=== PATIENT | female | born 1975 | race Caucasian/White ===

== ENCOUNTER 2018-12-07 11:46 | Emergency (ER) | payer BC ==
[2018-12-07] MEDS ORDERED: NA CHLORIDE 0.9% 1,000 ML ONE (12:13)
[2018-12-07 12:58] LABS: Absolute Lymphocytes (CBC) 1.5 K/uL (0.7-4.9); Basophils % 0.8 % (0-1.3); Hematocrit 42.1 % (36.0-45.0); Lymphocytes % 16.1 % (15.3-44.8); MPV 8.6 fL (7.6-11.3)
[2018-12-07 13:06] LABS: Protime INR 1.04
[2018-12-07 13:17] LABS: Urine Blood TRACE (NEG); Urine Glucose NEGATIVE (NEG); Urine Protein 1+ (NEG)
[2018-12-07 13:26] LABS: ALT/SGPT 20 U/L (12-78); AST/SGOT 12 U/L (15-37); Albumin 3.4 g/dL (3.4-5.0); Alkaline Phosphatase 69 U/L (45-117); BUN Blood Urea Nitrogen 18 mg/dL (7-18); Bicarbonate 27 mmol/L (21-32); Bilirubin Direct < 0.1 mg/dL (0-0.2); Bilirubin Total 0.3 mg/dL (0.2-1.0); Glucose Level 94 mg/dL (74-106); NT PRO-BNP 49 pg/mL (<125); Potassium 3.9 mmol/L (3.5-5.1); Protein, Total 7.5 g/dL (6.4-8.2); Sodium Level 142 mmol/L (136-145); Troponin (Emerg Dept Use Only) < 0.02 ng/mL (0.0-0.045)
--- NOTE | 2018-12-07 16:27 | EDPHYS ---
Physician Documentation [facility] Name: Tamika Villalobos Age: 43 yrs Sex: Female : 1975 Arrival Date: 12/07/2018 Time: 11:57 Bed 4 Private MD: ED Physician Moshe Poon HPI: 12/07 12:24 This 43 yrs old Female presents to ER via EMS with complaints of Syncope. jmm 12:24 The patient has experienced syncope, became unresponsive, collapsed, lost m consciousness. Onset: The symptoms/episode began/occurred acutely, just prior to arrival. Duration: This was a single episode, that lasted 1 minute(s). Associated injury: The patient did not suffer any apparent associated injury. Associated signs and symptoms: Pertinent positives: shortness of breath. This is a 43 year old female with a history of depression that presents to the ED after a syncopal episode which occurred just prior to arrival. Patient was giving blood. Patient states having issues with fluctuating blood pressure. Patient states over the previous week have an episode of chest pain with unilateral weakness. Patient was seen in the ED in [place] and discharged. . DEMAND PLANNER: 16:53 LMP N/A - Hysterectomy jl7 Historical: - Allergies: 12:01 PENICILLINS; jl7 - Home Meds: 12:01 None [Active]; jl7 - PMHx: 12:01 Depression; jl7 - PSHx: 12:01 None; jl7 - Immunization history:: Adult Immunizations unknown. - Social history:: Smoking status: Patient/guardian denies using tobacco. - Ebola Screening: : No symptoms or risks identified at this time. ROS: 12:24 Constitutional: Negative for fever, chills, and weight loss, Cardiovascular: Negative jmm for chest pain, palpitations, and edema. 12:24 MS/Extremity: Negative for injury and deformity, Skin: Negative for injury, rash, and discoloration. 12:24 Respiratory: Positive for shortness of breath. 12:24 Neuro: Positive for syncope, Negative for weakness. 12:24 All other systems are negative. Exam: 12:24 Constitutional: This is a well developed, well nourished patient who is awake, alert, jmm and in no acute distress. Head/Face: atraumatic. Eyes: EOMI, no conjunctival erythema appreciated ENT: Moist Mucus Membranes Neck: Trachea midline, Supple Chest/axilla: Normal chest wall appearance and motion. 12:24 Abdomen/GI: Non distended, soft Back: Normal ROM Skin: General appearance color normal MS/ Extremity: Moves all extremities, no obvious deformities appreciated, no edema noted to the lower extremities 12:24 Cardiovascular: Rate: normal, Rhythm: regular, Pulses: no pulse deficits are appreciated. 12:24 Neuro: Orientation: is normal, Mentation: is normal, Memory: is normal. 12:24 Psych: Behavior/mood is pleasant, cooperative. Vital Signs: 12:01 BP 106 / 78; Pulse 69; Resp 15 S; Pulse Ox 100% on R/A; jl7 13:30 BP 127 / 79; Pulse 59; Resp 16 S; Pulse Ox 100% on R/A; jl7 14:24 BP 135 / 80; Pulse 74; Resp 20 S; Pulse Ox 100% on R/A; jl7 16:03 BP 116 / 83; Pulse 74; Resp 14 S; Pulse Ox 100% on R/A; jl7 MDM: 12:03 Patient medically screened. [facility] 16:24 Data reviewed: vital signs, nurses notes. Counseling: I had a detailed discussion with marjorie the patient and/or guardian regarding: the historical points, exam findings, and any diagnostic results supporting the discharge/admit diagnosis, lab results, radiology results, the need for outpatient follow up, to return to the emergency department if symptoms worsen or persist or if there are any questions or concerns that arise at home. ED course: Patient is alert and non toxic in appearance. H/H normal. EKG normal. Imaging studies negative. Patient advised to follow up with cardiology and otherwise given strict return precautions. Patient understood and agrees with the plan of care. . 12/07 12:00 Order name: Basic Metabolic Panel; Complete Time: 13:31 [facility] 12/07 12:00 Order name: CBC with Diff; Complete Time: 13:16 [facility] 12/07 12:00 Order name: LFT's; Complete Time: 13:31 [facility] 12/07 12:00 Order name: Magnesium; Complete Time: 13:31 [facility] 12/07 12:00 Order name: NT PRO-BNP; Complete Time: 13:31 [facility] 12/07 12:00 Order name: PT-INR; Complete Time: 13:16 [facility] 12/07 12:00 Order name: Troponin (emerg Dept Use Only); Complete Time: 13:31 [facility] 12/07 12:00 Order name: XRAY Chest (1 view) [facility] 12/07 12:14 Order name: D-Dimer; Complete Time: 13:33 [facility] 12/07 13:16 Order name: Urine Dipstick--Ancillary (enter results); Complete Time: 13:31 [facility] 12/07 13:16 Order name: Urine --Ancillary (enter results); Complete Time: 13:31 [facility] 12/07 13:33 Order name: CT Head Brain wo Cont [facility] 12/07 13:33 Order name: CT Chest For PE Angio [facility] 12/07 15:21 Order name: ESR; Complete Time: 17:00 [facility] 12/07 12:00 Order name: EKG; Complete Time: 12:01 [facility] 12/07 12:00 Order name: Cardiac monitoring; Complete Time: 14:23 [facility] 12/07 12:00 Order name: EKG - Nurse/Tech; Complete Time: 14:22 [facility] 12/07 12:00 Order name: IV Saline Lock; Complete Time: 14:22 [facility] 12/07 12:00 Order name: Labs collected and sent; Complete Time: 14:22 [facility] 12/07 12:00 Order name: O2 Per Protocol; Complete Time: 14:22 [facility] 12/07 12:00 Order name: O2 Sat Monitoring; Complete Time: 14:22 [facility] 12/07 12:01 Order name: Urine Dipstick-Ancillary (obtain specimen); Complete Time: 14:22 [facility] Administered Medications: 12:45 Drug: NS 0.9% 1000 ml Route: IV; Rate: 1 bolus; Site: left antecubital; jl7 13:45 Follow up: Response: No adverse reaction; IV Status: Completed infusion; IV Intake: jl7 1000ml Disposition: 12/07/18 16:26 Discharged to Home. Impression: Syncope and collapse. - Condition is Stable. - Discharge Instructions: Syncope. - Medication Reconciliation Form, Thank You Letter, Antibiotic Education, Prescription Opioid Use form. - Follow up: Private Physician; When: 2 - 3 days; Reason: Recheck today's complaints, Continuance of care, Re-evaluation by your physician. Addendum: 12/09/2018 07:53 Co-signature as Attending Physician, Moshe Poon MD I agree with the assessment and c zaragoza plan of care. Signatures: Dispatcher [employer] EDMoshe Jurado MD MD cha Mickail, Joel, PA PA jmm Leal, Jahala, RN RN jl7 Corrections: (The following items were deleted from the chart) 12/07 17:02 16:26 12/07/2018 16:26 Discharged to Home. Impression: Syncope and collapse. Condition jl7 is Stable. Forms are Medication Reconciliation Form, Thank You Letter, Antibiotic Education, Prescription Opioid Use. Follow up: Private Physician; When: 2 - 3 days; Reason: Recheck today's complaints, Continuance of care, Re-evaluation by your physician. marjorie
--- NOTE | 2018-12-07 16:27 | ER ---
Nurse's Notes [facility] Name: Tamika Villalobos Age: 43 yrs Sex: Female : 1975 Arrival Date: 12/07/2018 Time: 11:57 Bed 4 Private MD: Diagnosis: Syncope and collapse Presentation: 12/07 11:58 Presenting complaint: EMS states: Pt had a syncopal episode while having labs done at [facility], out for 30 secs, phlebotomists reported not being able to find a pulse. Pts reports "She has a problem with needles.". Transition of care: [facility]. Onset of symptoms was December 07, 2018. Risk Assessment: Do you want to hurt yourself or someone else? Patient reports no desire to harm self or others. Initial Sepsis Screen: Does the patient meet any 2 criteria? No. Patient's initial sepsis screen is negative. Does the patient have a suspected source of infection? No. Patient's initial sepsis screen is negative. Care prior to arrival: Glucose check: 109. 11:58 Method Of Arrival: EMS: [facility] 11:58 Acuity: NIK 2 [facility] Triage Assessment: 12:00 General: Appears in no apparent distress. uncomfortable, Behavior is calm, cooperative, jl7 appropriate for age, drowsy. Pain: Denies pain. EENT: No signs and/or symptoms were reported regarding the EENT system. Neuro: Level of Consciousness is awake, alert, obeys commands, Oriented to person, place, time, situation, Reports dizziness just prior to syncope and "I just feel off.". Cardiovascular: Patient's skin is warm and dry. Respiratory: Airway is patent Respiratory effort is even, unlabored, Respiratory pattern is regular, symmetrical. GI: Abdomen is flat, non-distended, Reports nausea, Patient currently denies diarrhea, vomiting. : No signs and/or symptoms were reported regarding the genitourinary system. Derm: Skin is pink, warm \\T\\ dry. Musculoskeletal: No signs and/or symptoms reported regarding the musculoskeletal system. CLINICAL CODER: 16:53 LMP N/A - Hysterectomy jl7 Historical: - Allergies: 12:01 PENICILLINS; jl7 - Home Meds: 12:01 None [Active]; jl7 - PMHx: 12:01 Depression; jl7 - PSHx: 12:01 None; jl7 - Immunization history:: Adult Immunizations unknown. - Social history:: Smoking status: Patient/guardian denies using tobacco. - Ebola Screening: : No symptoms or risks identified at this time. Screenin:30 Abuse screen: Denies threats or abuse. Denies injuries from another. Nutritional jl7 screening: No deficits noted. Tuberculosis screening: No symptoms or risk factors identified. Fall Risk IV access (20 points). Total Arzate Fall Scale indicates No Risk (0-24 pts). Assessment: 12:00 General: see triage assessment. jl7 13:00 Reassessment: Patient appears in no apparent distress at this time. No changes from jl7 previously documented assessment. Patient and/or family updated on plan of care and expected duration. Pain level reassessed. Patient is alert, oriented x 3, equal unlabored respirations, skin warm/dry/pink. 14:00 Reassessment: Patient appears in no apparent distress at this time. Patient and/or 7 family updated on plan of care and expected duration. Pain level reassessed. Patient is alert, oriented x 3, equal unlabored respirations, skin warm/dry/pink. 15:00 Reassessment: Patient appears in no apparent distress at this time. Patient and/or 7 family updated on plan of care and expected duration. Pain level reassessed. Patient is alert, oriented x 3, equal unlabored respirations, skin warm/dry/pink. Patient states feeling better. Patient states symptoms have improved. 16:00 Reassessment: Patient appears in no apparent distress at this time. No changes from jl7 previously documented assessment. Patient and/or family updated on plan of care and expected duration. Pain level reassessed. Patient is alert, oriented x 3, equal unlabored respirations, skin warm/dry/pink. Vital Signs: 12:01 BP 106 / 78; Pulse 69; Resp 15 S; Pulse Ox 100% on R/A; jl7 13:30 BP 127 / 79; Pulse 59; Resp 16 S; Pulse Ox 100% on R/A; jl7 14:24 BP 135 / 80; Pulse 74; Resp 20 S; Pulse Ox 100% on R/A; jl7 16:03 BP 116 / 83; Pulse 74; Resp 14 S; Pulse Ox 100% on R/A; jl7 ED Course: 11:57 Patient arrived in ED. jl7 12:00 Earl Cotter PA is PHCP. [facility] 12:00 Moshe Poon MD is Attending Physician. [facility] 12:00 Triage completed. jl7 12:00 Patient has correct armband on for positive identification. Placed in gown. Bed in low jl7 position. Call light in reach. Side rails up X2. classroom monitor on. Pulse ox on. NIBP on. Warm blanket given. 12:01 Arm band placed on right wrist. jl7 12:02 Shawanda Cruz, RN is Primary Nurse. jl7 12:37 EKG done, by equipment maint tech. reviewed by Earl BERNABE. at1 12:45 Initial lab(s) drawn, by nh, sent to lab. Inserted saline lock: 22 gauge in left jl7 antecubital area, using aseptic technique. Blood collected. 14:14 XRAY Chest (1 view) In Process Unspecified. EDMS 14:24 CT Head Brain wo Cont In Process Unspecified. EDMS 14:24 CT Chest For PE Angio In Process Unspecified. EDMS 16:52 No provider procedures requiring assistance completed. IV discontinued, intact, jl7 bleeding controlled, No redness/swelling at site. Pressure dressing applied. Administered Medications: 12:45 Drug: NS 0.9% 1000 ml Route: IV; Rate: 1 bolus; Site: left antecubital; jl7 13:45 Follow up: Response: No adverse reaction; IV Status: Completed infusion; IV Intake: jl7 1000ml Intake: 13:45 IV: 1000ml; Total: 1000ml. [facility] Outcome: 16:26 Discharge ordered by . [facility] 16:52 Discharged to home ambulatory. jl7 16:52 Condition: stable 16:52 Discharge instructions given to patient, family, Instructed on discharge instructions, follow up and referral plans. Demonstrated understanding of instructions, follow-up care. 17:02 Patient left the ED. [facility] Signatures: Dispatcher [employer] EDMS Earl Cotter PA PA jmm Gonzales, Amanda, video and sound recorder EKG Tat1 Shawanda Cruz, RN RN [facility]
--- NOTE | 2018-12-07 20:03 | RAD REPORT ---
EXAM DESCRIPTION: CT HEAD W/O CONTRAST CLINICAL HISTORY: Syncope COMPARISON: None available. TECHNIQUE: Axial 5 mm thick images of the head were obtained without contrast. Sagittal and coronal reconstruction images were generated and reviewed. This exam was performed according to our departmental dose-optimization program, which includes automated exposure control, adjustment of the mA and/or kV according to patient size and/or use of iterative reconstruction technique. FINDINGS: No intracranial hemorrhage is present. No mass, edema or shift of midline structures. No acute intracranial finding is seen. No volume loss. Ventricles are normal. Right side mastoid air cells are clear. Left mastoid opacification. No acute paranasal sinus finding. There is a large polyp or retention cyst in the right maxillary sinus. IMPRESSION: 1. No mass, hemorrhage or acute intracranial finding identifiable. 2. Left mastoid opacification. No acute paranasal sinus finding.
--- NOTE | 2018-12-07 20:12 | RAD REPORT ---
EXAM DESCRIPTION: CT CHEST PE ANGIO STUDY CLINICAL HISTORY: Shortness of breath, elevated D Dimer COMPARISON: Portable chest December 07, 2018 TECHNIQUE: During dynamic enhancement using 150 milliliters non-ionic IV contrast, axial 2 mm thick images of the chest were obtained. Multiplanar reconstruction images were generated and reviewed. This exam was performed according to our departmental dose-optimization program, which includes automated exposure control, adjustment of the mA and/or kV according to patient size and/or use of iterative reconstruction technique. FINDINGS: No pulmonary emboli identified. No pulmonary artery enlargement. No acute aortic finding. No pericardia thickening or effusion. No mediastinal or hilar mass or lymphadenopathy identifiable. No pneumothorax or pleural effusion. No acute lung parenchymal process identifiable. No chest wall mass or axillary lymphadenopathy. No acute bone finding. IMPRESSION: 1. No pulmonary emboli. 2. No acute CT chest finding.
[2018-12-07 21:05] VITALS: O2SAT 100
[2018-12-07 21:10] VITALS: BP 116/83
--- NOTE | 2018-12-08 04:39 | EKG ---
Test Date: 2018-12-07 Test Time: 12:15:42 Assembly Machine Feeder: JANNETTE MEASUREMENT RESULTS: Intervals: Rate: 64 MD: 164 QRSD: 88 QT: 410 QTc: 422 Chassell: P: 30 MD: 164 QRS: 28 T: 49 INTERPRETIVE STATEMENTS: Normal sinus rhythm Normal ECG No previous ECG available for comparison Electronically Signed On 12-08-18 04:39:27 CDT by Anthony Villeda
--- NOTE | 2018-12-08 11:50 | RAD REPORT ---
EXAM DESCRIPTION: Ashwini Single View12/07/2018 7:17 pm CLINICAL HISTORY: Syncope COMPARISON: none FINDINGS: The lungs appear clear of acute infiltrate. The heart is normal size IMPRESSION: No acute abnormalities displayed
== END 2018-12-07 17:02 | disposition home or self-care (01) ==
LOC: ER 11:46
DX: R55 Syncope and collapse (principal); F32.9 Major depressive disorder, single episode, unspecified; Z88.0 Allergy status to penicillin
CPT/HCPCS: 93005; 85025; 80048; 36415; 83735; 81025; 85610; 85379; 80076; 85652; 81003; 84484; 83880; 70450; 71275; 71045; 96360; 99285; Q9967; J7030

== ENCOUNTER 2020-08-05 09:01 | Emergency (ER) | payer BC ==
--- OUTSIDE RECORDS SUMMARY | 2020-08-05 09:04 | XMS REPORT | Continuity of Care Document ---
:1975 Author Organization [facility] t Address [address] [place] [address] [address] [place] [address] Care Team Providers Name Role Phone Fareed Holden MD Primary Care Physician Varsha Hurst Attending Clinician Fareed Max MD. Attending Clinician ARIANA Attending Clinician Unavailable Payers Payer Name Policy Type Policy Effective Date Expiration Date Sour ce Number BCBSBCBS CHOICE [id number] 2019 [place] PPO/FEDERAL 00:00:00 [employer] EMPL [id number] 2019-Prese ntPPO Problems This patient has no known problems. Allergies, Adverse Reactions, Alerts Allergy Allergy Status Severity Reaction(s) Onset Inactive Treating Comm ents Source Name Type Date Date Clinician Hydrocod Propensi Active Shortness Of 2019-0 [place] one-Acet ty to Breath 1-29 Methodi aminophe adverse 00:00: st n reaction 00 s to drug Penicill Propensi Active Hives, 2016-03 [place] n ins ty to Itching, 0-26 Methodi adverse Rash 00:00: st reaction 00 s to drug Family History Family Member Diagnosis Comments Start Date Stop Date Source Natural mother Heart attack [place] [employer] Natural mother Heart disease [place] [facility] Natural mother Stroke [facility] [place] [facility] thodist Natural father Diabetes [facility] [place] [facility]odist Social History Social Habit Start Date Stop Date Quantity Comments Source Tobacco use and 2019-05-20 2019-05-20 Never used [facility] ethodist exposure 00:00:00 00:00:00 Alcohol intake 2019-05-20 2019-05-20 Current [facility] [place] [facility] thodist 00:00:00 00:00:00 non-drinker of alcohol (finding) Sex Ass[birth year] F Suhas Lopez ethodist 00:00:00 00:00:00 Smoking Status Start Date Stop Date Source Never smoker Suhas Pichardois t Medications Ordered Filled Start Stop Current Ordering Indication Dosage Frequency Signature Comments Components Source Medication Medication Date Date Medication? Clinician (SIG) Name Name meloxicam 2020- No 15mg QD Take 1 [place] on (MOBIC) 15 08-2118 tablet (15 Me thodi mg tablet 00:00: 23:59 mg total) st 00 :00 by mouth daily for 30 days. Start after completing steroid pack. Take with food. methylPREDN 2019- 2020- No Use as Abran nehal ISolone 08-21 06-24 directed Methodi (MEDROL 00:00: 23:[address] DOSEPAK) 4 00 :00 instructio mg tablet ns VIIBRYD 20 Yes 20mg Take 20 mg [place] mg tablet 1-24 by mouth. Metho di 00:00: st 00 Procedures Procedure Date / Time Performed Performing Clinician [facility] e MRI LUMBAR SPINE WO 2019-08-26 17:34:18 Colin Sanchez CONTRAST XR LUMBAR SPINE COMPLETE 2019-08-22 09:07:08 Colin Sanchez 4+ VW Plan of Care Planned Activity Planned Date Details Comments Source Future Scheduled 2020-10-04 INFLUENZA VACCINE Lamin n Sabianist Test 00:00:00 [code = INFLUENZA VACCINE] Future Scheduled 1997 Screening for Dai Me thodist Test 00:00:00 malignant neoplasm of cervix (procedure) [code = 165040373] Future Scheduled 1994 Hepatitis C [place] Met hodist Test 00:00:00 screening (procedure) [code = 594154968] Future Scheduled 1988 COVID-19 VACCINE (1) Abran Garcia Test 00:00:00 [code = COVID-19 VACCINE (1)] Encounters Start End Encounter Admission Attending Care Care Encounter Source Date/Time Date/Time Type Type Clinicians Facility Department ID 2019-08-27 2019-08-27 Outpatient AURELIO Alexx [facility] [id number] [place] 00:00:00 00:00:[address] 2019-08-26 2019-08-26 Outpatient PETER, [facility] [id number] [place] 00:00:00 00:00:00 SAMANTHA [address] 2019-08-22 2019-08-22 Outpatient AURELIO, [facility] [id number] [place] 00:00:00 00:00:00 COLIN [address] 2019-08-22 2019-08-22 Outpatient AURELIO, [facility] [id number] [place] 00:00:00 00:00:00 COLIN [address] 2019-05-20 2019-05-20 Outpatient ARIANA, [facility] [id number] [place] 00:00:00 00:00:00 GORDO [address] Results Test Description Test Time Test Comments Results Result Sourc e Comments MRI Lumbar Spine 2019-08-06 Jaz Reed on Wo Contrast 2 Radiology Results Method ist 17:42:14 08/26/2019 5:45 PM CDT EXAMINATION: MRI LUMBAR SPINE WO CONTRASTCLINICAL HISTORY: M43.16 Spondylolisthesis lumbar region, M47.26 Other spondylosis with radiculopathy lumbar region, lumbar radiculopathy spondylolisthesis at [id number]: NoneTECHNIQUE: Multiplanar multisequence noncontrast enhanced examination was performed of the Lumbar spine.FINDINGS:Numberi ng assumes that the last visualized functional disc to be L5-S1.There is normal lordosis. Vertebral body heights are maintained without acute fracture. No focal significant marrow signal abnormality is appreciated. Soft tissues shows no mass, adenopathy or aneurysm. The partially visualized spinal cord and the conus are unremarkable. Axial images through the disc spaces demonstrate the following:T12-L1: No significant posterior disc disease, spinal canal, lateral recess or neural foraminal stenosis.L1-L2: No significant posterior disc disease, spinal canal, lateral recess or neural foraminal stenosis.L2-L3: No significant posterior disc disease, spinal canal, lateral recess or neural foraminal stenosis.L3-L4: No significant posterior disc disease, spinal canal, lateral recess or neural foraminal stenosis..L4-L5: Disc desiccation with mild disc bulge and facet hypertrophy minimally narrowing the lateral recesses. The central thecal sac remains widely patent. Facet spurring and disc osteophyte changes results in mild right and moderate left foraminal narrowing where there is a focal left foraminal and extra foraminal protrusion moderately abutting the exiting left L4 nerve root. Correlate for a left L4 radiculopathy to determine significance.L5-S1: There is disc desiccation and disc bulge with a broad-based posterior protrusion measuring 3 mm in AP dimension. There is facet spurring with minimal right and mild left lateral recess narrowing. The central thecal sac is patent at 9 mm. Facet spurring and disc osteophyte changes results in mild right and mild to moderate left foraminal stenosisThe partially visualized upper sacrum is unremarkable.IMPRESSIO N: There is spondylosis most prominent at L4-L5 with disc bulge and facet disease resulting in mild narrowing of the lateral recesses. There is a superimposed left foraminal and foraminal disc protrusion on the left directly abutting the exiting left L4 nerve root. There is at least moderate foraminal stenosis. Correlate for a left L4 radiculopathy.[facility]UA [id number]
[2020-08-05 09:43] LABS: Urine Blood Negative (Negative); Urine Glucose Negative (Negative); Urine Protein Negative (Negative); Urine Specific Gravity 1.025 (1.005-1.030); Urine pH 7.5 (5.0-7.0)
--- NOTE | 2020-08-05 09:59 | RAD REPORT ---
EXAM DESCRIPTION: CT - Head Brain Wo Cont - 08/05/2020 9:52 am CLINICAL HISTORY: DIZZINESS Headache, drowsiness COMPARISON: Head Brain Wo Cont dated 12/07/2018 TECHNIQUE: All CT scans are performed using dose optimization technique as appropriate and may inclu de automated exposure control or mA/KV adjustment according to patient size. FINDINGS: No intracranial hemorrhage, hydrocephalus or extra-axial fluid collection.No areas of brai n edema or evidence of midline shift. 18 mm mucous retention cyst versus polyp right maxillary antrum. The paranasal sinuses and mastoids a re otherwise clear. The calvarium is intact. IMPRESSION: No acute intracranial abnormality.
[2020-08-05] MEDS ORDERED: ASPIRIN 81 MG CHEWABLE TABLET ONE ×2 (10:10→10:11)
[2020-08-05 10:28] LABS: Absolute Lymphocytes (CBC) 2.3 K/uL (0.7-4.9); Basophils % 1.4 % (0-1.3); Hematocrit 40.5 % (36.0-45.0); Lymphocytes % 25.9 % (15.3-44.8); MPV 8.8 fL (7.6-11.3); Protime INR 1.06; RBC Red Blood Cell Count 4.51 M/uL (3.86-4.86)
[2020-08-05 10:37] LABS: Urine Specific Gravity/Preg 1.025 (1.005-1.030)
--- NOTE | 2020-08-05 10:38 | RAD REPORT ---
EXAM DESCRIPTION: RAD - Chest Single View - 08/05/2020 10:29 am CLINICAL HISTORY: CHEST PAIN Chest pain. COMPARISON: Chest Single View dated 12/07/2018 FINDINGS: Portable technique limits examination quality. The lungs are grossly clear. The heart is normal in size. No displaced fractures. IMPRESSION: No acute intrathoracic process suspected.
[2020-08-05 10:46] LABS: ALT/SGPT 25 U/L (12-78); AST/SGOT 18 U/L (15-37); Albumin 3.1 g/dL (3.4-5.0); Alkaline Phosphatase 76 U/L (45-117); BUN Blood Urea Nitrogen 10 mg/dL (7-18); Bicarbonate 26 mmol/L (21-32); Bilirubin Direct < 0.1 mg/dL (0-0.2); Bilirubin Total 0.3 mg/dL (0.2-1.0); Creatine Phosphokinase 71 U/L (26-192); Glucose Level 86 mg/dL (74-106); Magnesium 2.1 mg/dL (1.8-2.4); NT PRO-BNP 202 pg/mL (<125); Potassium 4.1 mmol/L (3.5-5.1); Protein, Total 7.3 g/dL (6.4-8.2); Sodium Level 142 mmol/L (136-145); Troponin (Emerg Dept Use Only) < 0.02 ng/mL (0.0-0.045)
[2020-08-05] MEDS ORDERED: NA CHLORIDE 0.9% 1,000 ML ONE (11:32)
--- NOTE | 2020-08-05 14:37 | EDPHYS ---
Physician Documentation [facility] Name: Tamika Villalobos Age: 45 yrs Sex: Female : 1975 Arrival Date: 08/05/2020 Time: 09:05 Bed 19 Private MD: ED Physician Natanael Siegel HPI: 08/05 11:03 This 45 yrs old Female presents to ER via Ambulatory with complaints of Arm kb Numbness, Dizziness. 11:04 The patient or guardian reports chest pain that is located primarily in the anterior kb chest wall, left. Onset: this morning. The pain does not radiate. Associated signs and symptoms: Pertinent positives: dizziness, nausea, near-syncope, shortness of breath, vomiting. The chest pain is described as a pressure. Duration: The patient or guardian reports a single episode, that is still ongoing, and unchanged. Modifying factors: The symptoms are alleviated by nothing. the symptoms are aggravated by nothing. Severity of pain: At its worst the pain was moderate in the emergency department the pain is unchanged. The patient has not experienced similar symptoms in the past. The patient has not recently seen a physician. Pt reports nausea and vomiting yesterday. States she didn't feel well this morning, but was going to go to work. On the way there she became dizzy with blurred vision in left eye. Reports numbness to left arm, chest pain and shortness of breath. States she pulled over because she thought she was going to pass out. States she is supposed to be going to a [employer] because she has syncopal episodes at times for an unknown reason. States her mother and grandmother have cardiac history, but she hasn't been diagnosed with anything. . Historical: - Allergies: 09:24 PENICILLINS; ph - PMHx: 09:24 Depression; ph - PSHx: 09:24 Hysterectomy; ph ROS: 11:00 Constitutional: Negative for fever, chills, and weight loss. kb 11:00 Cardiovascular: Positive for chest pain, Negative for edema, orthopnea, palpitations, paroxysmal nocturnal dyspnea. 11:00 Respiratory: Positive for shortness of breath, Negative for cough, dyspnea on exertion, hemoptysis, orthopnea, pleurisy, sputum production, wheezing. 11:00 Abdomen/GI: Positive for nausea and vomiting, Negative for abdominal pain. 11:00 Neuro: Positive for dizziness, numbness, of the left arm. 11:00 All other systems are negative. Exam: 09:34 ECG was reviewed by the Attending Physician. kb 11:00 Constitutional: This is a well developed, well nourished patient who is awake, alert, kb and in no acute distress. Eyes: Pupils equal round and reactive to light, extra-ocular motions intact. Lids and lashes normal. Conjunctiva and sclera are non-icteric and not injected. Cornea within normal limits. Periorbital areas with no swelling, redness, or edema. Cardiovascular: Regular rate and rhythm with a normal S1 and S2. No gallops, murmurs, or rubs. No pulse deficits. Respiratory: Respirations even and unlabored. No increased work of breathing, no retractions or nasal flaring. Abdomen/GI: Soft, non-tender. No distention Skin: Warm, dry with normal turgor. Normal color. MS/ Extremity: Pulses equal, no cyanosis. Neurovascular intact. Full, normal range of motion. Neuro: Awake and alert, GCS 15, oriented to person, place, time, and situation. Moves all extremities. Normal gait. Psych: Awake, alert, with orientation to person, place and time. Behavior, mood, and affect are within normal limits. 11:00 Neuro: Cerebellar function: is grossly normal, Motor: strength is 5/5 in all extremities. 13:48 ECG was reviewed by the Attending Physician. Vital Signs: 09:20 BP 162 / 104; Pulse 82; Resp 22; Temp 97.0; Pulse Ox 100% on R/A; Weight 86.18 kg; ph Height 5 ft. 5 in. (165.10 cm); 10:41 BP 137 / 89; Pulse 66; Resp 17; Pulse Ox 95% on R/A; tw2 10:52 BP 127 / 74 Supine; Pulse 73; Resp 16; Pulse Ox 99% on R/A; tw2 10:52 BP 122 / 71 Sitting; Pulse 76; Resp 17; tw2 10:52 BP 128 / 87 Standing; Pulse 84; Resp 17; Pulse Ox 100% ; tw2 12:03 BP 123 / 79; Pulse 66; Resp 17; Pulse Ox 98% on R/A; tw2 13:06 BP 134 / 88; Pulse 65; Resp 19; Pulse Ox 100% on R/A; tw2 14:25 BP 130 / 73; Pulse 67; Resp 17; Pulse Ox 99% on R/A; tw2 09:20 Body Mass Index 31.62 (86.18 kg, 165.10 cm) ph 10:52 "i do feel lightheaded now", provider notified. tw2 Visual Acuity: 10:32 Left Eye Visual acuity 20/40, ; Right Eye Visual acuity 20/30, ; Both Eyes Visual mh5 acuity 20/30; With Lenses; with contacts in MDM: 09:32 Patient medically screened. kb 11:03 Data reviewed: vital signs, nurses notes. Data interpreted: Pulse oximetry: on room air kb is 100 %. Interpretation: normal. 11:37 ED course: Symptoms have all resolved. Pt resting on stretcher in no distress. kb Discussed history, HPI and exam with ERP, recommends repeat trop and outpatient follow up. Pt in agreement with plan of care. 08/05 09:41 Order name: Basic Metabolic Panel; Complete Time: 10:47 kb 08/05 09:41 Order name: CBC with Diff; Complete Time: 10:31 kb 08/05 09:41 Order name: LFT's; Complete Time: 10:47 kb 08/05 09:41 Order name: Magnesium; Complete Time: 10:47 kb 08/05 09:41 Order name: NT PRO-BNP; Complete Time: 10:47 kb 08/05 09:41 Order name: PT-INR; Complete Time: 10:31 kb 08/05 09:41 Order name: Troponin (emerg Dept Use Only); Complete Time: 10:47 kb 08/05 09:41 Order name: XRAY Chest (1 view); Complete Time: 10:44 kb 08/05 09:41 Order name: CPK; Complete Time: 10:47 kb 08/05 09:41 Order name: CT Head Brain wo Cont; Complete Time: 10:00 kb 08/05 09:43 Order name: Urine --Ancillary (enter results); Complete Time: 10:44 bd 08/05 09:43 Order name: Urine Dipstick-Ancillary; Complete Time: 10:00 EDMS 08/05 12:34 Order name: Troponin (emerg Dept Use Only); Complete Time: 14:30 kb 08/05 09:33 Order name: Visual Acuity; Complete Time: 11:11 kb 06/02 09:38 Order name: Urine Dipstick-Ancillary (obtain specimen); Complete Time: 09:38 tw2 08/05 09:41 Order name: EKG; Complete Time: 09:42 kb 08/05 09:41 Order name: Cardiac monitoring; Complete Time: 11:11 kb 08/05 09:41 Order name: EKG - Nurse/Tech; Complete Time: 09:48 kb 08/05 09:41 Order name: IV Saline Lock; Complete Time: 10:47 kb 08/05 09:41 Order name: Labs collected and sent; Complete Time: 10:47 kb 08/05 09:41 Order name: O2 Per Protocol; Complete Time: 09:48 kb 08/05 09:41 Order name: O2 Sat Monitoring; Complete Time: 09:48 kb 08/05 10:07 Order name: Orthostatics; Complete Time: 10:53 kb 08/05 12:34 Order name: EKG; Complete Time: 12:34 kb 08/05 12:34 Order name: EKG - Nurse/Tech; Complete Time: 13:31 kb EC:34 Rate is 84 beats/min. Rhythm is regular. QRS [place] is Normal. OR interval is normal at kb 146 msec. QRS interval is normal at 82 msec. QT interval is normal at 366 msec. 13:48 Rate is 73 beats/min. Rhythm is regular. QRS [place] is Normal. OR interval is normal at kb 162 msec. QRS interval is normal at 92 msec. QT interval is normal at 408 msec. Administered Medications: 10:00 Drug: Aspirin Chewable Tablet 324 mg Route: PO; tw2 10:48 Follow up: Response: No adverse reaction tw2 11:14 Drug: NS 0.9% 1000 ml Route: IV; Rate: 1000 ml; Site: right antecubital; tw2 14:49 Follow up: Response: No adverse reaction; IV Status: Completed infusion; IV Intake: tw2 1000ml Disposition: 18:31 Co-signature as Attending Physician, Natanael Siegel MD I agree with the assessment and tw4 plan of care. Disposition: 08/05/20 14:36 Discharged to Home. Impression: Dizziness and giddiness, Chest pain, unspecified. - Condition is Stable. - Discharge Instructions: Nonspecific Chest Pain, [id number], Dizziness, [id number]. - Medication Reconciliation Form, Thank You Letter, Antibiotic Education, Prescription Opioid Use, Work release form, Family Work Release form. - Follow up: Emergency Department; When: As needed; Reason: Worsening of condition. Follow up: Private Physician; When: 2 - 3 days; Reason: Recheck today's complaints, Continuance of care, Re-evaluation by your physician. Signatures: Dispatcher [employer] EDAZ Claudine Kim, LEMUEL-C HADOOP ENGINEER-Belinda Licea, RN RN Eliza Waterman RN RN tw2 Natanael Siegel MD MD tw4 Corrections: (The following items were deleted from the chart) 14:50 14:36 08/05/2020 14:36 Discharged to Home. Impression: Dizziness and giddiness; Chest tw2 pain, unspecified. Condition is Stable. Forms are Medication Reconciliation Form, Thank You Letter, Antibiotic Education, Prescription Opioid Use. Follow up: Emergency Department; When: As needed; Reason: Worsening of condition. Follow up: Private Physician; When: 2 - 3 days; Reason: Recheck today's complaints, Continuance of care, Re-evaluation by your physician. kb
--- NOTE | 2020-08-05 14:37 | ER ---
Nurse's Notes [facility] Name: Tamika Villalobos Age: 45 yrs Sex: Female : 1975 Arrival Date: 08/05/2020 Time: 09:05 Bed 19 Private MD: Diagnosis: Dizziness and giddiness;Chest pain, unspecified Presentation: 08/05 09:20 Chief complaint: Patient states: Blurred vision in L eye, numbness in L arm and ph generalized weakness that began yesterday, intermittent L sided chest pain and dizziness that started today. States, " I think I'm dehydrated from being out in the sun all day Monday." Reports N/V last night. Coronavirus screen: Client denies travel out of the [place] in the last 14 days. Ebola Screen: No symptoms or risks identified at this time. Initial Sepsis Screen: Does the patient meet any 2 criteria? No. Patient's initial sepsis screen is negative. Does the patient have a suspected source of infection? No. Patient's initial sepsis screen is negative. Risk Assessment: Do you want to hurt yourself or someone else? Patient reports no desire to harm self or others. Onset of symptoms was August 05, 2020. 09:20 Method Of Arrival: Ambulatory ph 09:20 Acuity: NIK 3 ph Historical: - Allergies: 09:24 PENICILLINS; ph - PMHx: 09:24 Depression; ph - PSHx: 09:24 Hysterectomy; ph Screenin:08 Abuse screen: Denies threats or abuse. Nutritional screening: No deficits noted. tw2 Tuberculosis screening: No symptoms or risk factors identified. Fall Risk None identified. Assessment: 09:17 Reassessment: pt being triaged in exam room at this time. tw2 09:38 Reassessment: provider at bedside at this time. tw2 10:00 General: Appears in no apparent distress. obese, well groomed, Behavior is cooperative, tw2 anxious. Pain: Complains of pain in chest. Neuro: Level of Consciousness is awake, alert, obeys commands, Oriented to person, place, time, situation. Cardiovascular: Reports chest pain, shortness of breath. Cardiovascular: Reports. Respiratory: Airway is patent Respiratory effort is even, unlabored, Respiratory pattern is regular, symmetrical. GI: No signs and/or symptoms were reported involving the gastrointestinal system. : No signs and/or symptoms were reported regarding the genitourinary system. EENT: No signs and/or symptoms were reported regarding the EENT system. Derm: No signs and/or symptoms reported regarding the dermatologic system. Musculoskeletal: Range of motion: intact in all extremities. 10:41 Reassessment: Patient appears in no apparent distress at this time. No changes from tw2 previously documented assessment. Patient and/or family updated on plan of care and expected duration. Pain level reassessed. Patient is alert, oriented x 3, equal unlabored respirations, skin warm/dry/pink. 10:45 Reassessment: Patient appears in no apparent distress at this time. No changes from tw2 previously documented assessment. Patient and/or family updated on plan of care and expected duration. Pain level reassessed. Patient is alert, oriented x 3, equal unlabored respirations, skin warm/dry/pink. 12:03 Reassessment: Patient appears in no apparent distress at this time. No changes from tw2 previously documented assessment. Patient and/or family updated on plan of care and expected duration. Pain level reassessed. Patient is alert, oriented x 3, equal unlabored respirations, skin warm/dry/pink. 13:06 Reassessment: Patient appears in no apparent distress at this time. No changes from tw2 previously documented assessment. Patient and/or family updated on plan of care and expected duration. Pain level reassessed. Patient is alert, oriented x 3, equal unlabored respirations, skin warm/dry/pink. 14:26 Reassessment: Patient appears in no apparent distress at this time. No changes from tw2 previously documented assessment. Patient and/or family updated on plan of care and expected duration. Pain level reassessed. Patient is alert, oriented x 3, equal unlabored respirations, skin warm/dry/pink. 14:49 Reassessment: Patient appears in no apparent distress at this time. No changes from tw2 previously documented assessment. Patient and/or family updated on plan of care and expected duration. Pain level reassessed. Patient is alert, oriented x 3, equal unlabored respirations, skin warm/dry/pink. Vital Signs: 09:20 BP 162 / 104; Pulse 82; Resp 22; Temp 97.0; Pulse Ox 100% on R/A; Weight 86.18 kg; ph Height 5 ft. 5 in. (165.10 cm); 10:41 BP 137 / 89; Pulse 66; Resp 17; Pulse Ox 95% on R/A; tw2 10:52 BP 127 / 74 Supine; Pulse 73; Resp 16; Pulse Ox 99% on R/A; tw2 10:52 BP 122 / 71 Sitting; Pulse 76; Resp 17; tw2 10:52 BP 128 / 87 Standing; Pulse 84; Resp 17; Pulse Ox 100% ; tw2 12:03 BP 123 / 79; Pulse 66; Resp 17; Pulse Ox 98% on R/A; tw2 13:06 BP 134 / 88; Pulse 65; Resp 19; Pulse Ox 100% on R/A; tw2 14:25 BP 130 / 73; Pulse 67; Resp 17; Pulse Ox 99% on R/A; tw2 09:20 Body Mass Index 31.62 (86.18 kg, 165.10 cm) ph 10:52 "i do feel lightheaded now", provider notified. tw2 Visual Acuity: 10:32 Left Eye Visual acuity 20/40, ; Right Eye Visual acuity 20/30, ; Both Eyes Visual mh5 acuity 20/30; With Lenses; with contacts in ED Course: 09:05 Patient arrived in ED. ds1 09:17 Eliza Waterman, ALANNAH is Primary Nurse. tw2 09:23 Triage completed. ph 09:24 Arm band placed on Patient placed in an exam room, on a stretcher. ph 09:32 Claudine Kim FNP-C is PHCP. kb 09:32 Natanael Siegel MD is Attending Physician. kb 09:43 Patient has correct armband on for positive identification. Placed in gown. Bed in low mh5 position. Call light in reach. Side rails up X 1. Warm blanket given. court monitor on. Pulse ox on. NIBP on. 09:44 Urine collected: clean catch specimen, clear, EKG done, by ED staff. mh5 09:52 CT Head Brain wo Cont In Process Unspecified. EDMS 10:00 Inserted saline lock: 20 gauge in right antecubital area, using aseptic technique. tw2 Blood collected. 10:29 XRAY Chest (1 view) In Process Unspecified. EDMS 13:31 Troponin (emerg Dept Use Only) Sent. tw2 14:49 No provider procedures requiring assistance completed. IV discontinued, intact, tw2 bleeding controlled, No redness/swelling at site. Pressure dressing applied. Administered Medications: 10:00 Drug: Aspirin Chewable Tablet 324 mg Route: PO; tw2 10:48 Follow up: Response: No adverse reaction tw2 11:14 Drug: NS 0.9% 1000 ml Route: IV; Rate: 1000 ml; Site: right antecubital; tw2 14:49 Follow up: Response: No adverse reaction; IV Status: Completed infusion; IV Intake: tw2 1000ml Intake: 14:49 IV: 1000ml; Total: 1000ml. tw2 Outcome: 14:36 Discharge ordered by MD. dalton 14:49 Discharged to home ambulatory, with significant other. tw2 14:49 Condition: stable 14:49 Discharge instructions given to patient, significant other, Instructed on discharge instructions, follow up and referral plans. Demonstrated understanding of instructions, follow-up care. 14:50 Patient left the ED. tw2 Signatures: Dispatcher [employer] EDClaudine Ledezma, GLUE SPREADING MACHINE OPERATOR-C GLUE SPREADING MACHINE OPERATOR-Brittney Granados ds1 Belinda Cam, RN RN Eliza Waterman RN RN tw2 Patricia Regalado [facility]
[2020-08-05 15:02] VITALS: TEMP 97
[2020-08-05 15:10] VITALS: BP 130/73; O2SAT 99
--- NOTE | 2020-08-06 07:53 | EKG ---
Test Date: 2020-08-05 Test Time: 13:25:39 Educational Diagnostician: DAMIÁN MEASUREMENT RESULTS: Intervals: Rate: 73 OR: 162 QRSD: 92 QT: 408 QTc: 449 [place]: P: 36 OR: 162 QRS: 27 T: 38 INTERPRETIVE STATEMENTS: Normal sinus rhythm Normal ECG Compared to ECG 12/07/2018 12:15:42 No significant changes Electronically Signed On 08-06-20 07:50:40 CDT by Jasiel Hall
--- NOTE | 2020-08-06 07:53 | EKG ---
Test Date: 2020-08-05 Test Time: 09:30:56 Sewing Room Supervisor: PH MEASUREMENT RESULTS: Intervals: Rate: 84 [place]: 146 QRSD: 82 QT: 366 QTc: 432 [place]: P: 25 OH: 146 QRS: 12 T: 25 INTERPRETIVE STATEMENTS: Normal sinus rhythm Normal ECG Compared to ECG 12/07/2018 12:15:42 No significant changes Electronically Signed On 08-06-20 07:50:47 CDT by Jasiel Hall
== END 2020-08-05 14:50 | disposition home or self-care (01) ==
LOC: ER 09:01
DX: R07.89 Other chest pain (principal); Z88.0 Allergy status to penicillin
CPT/HCPCS: 85025; 80048; 36415; 83735; 82550; 81025; 85610; 80076; 81003; 84484 ×2; 83880; 70450; 71045; J7030; 93005; 96360; 96361; 99285

== ENCOUNTER 2024-06-04 11:41 | Observation (INO) | payer BC ==
[2024-06-04 12:36] LABS: Absolute Basophils 0.1 K/uL (0-0.5); Absolute Eosinophils 0.2 K/uL (0-0.5); Absolute Lymphocytes (CBC) 2.6 K/uL (0.7-4.9); Absolute Monocytes 0.6 K/uL (0.1-1.3); Basophils % 1.2 % (0-1.3); Eosinophils % 2.3 % (0-4.4); Hematocrit 46.2 % (36.0-45.0); Hemoglobin 16.3 g/dL (12.0-15.0); MCH 31.6 pg (27.0-35.0); MCHC 35.4 g/dL (32.0-36.0); MCV 89.2 fL (80-100); MPV 8.8 fL (7.6-11.3); Monocytes % 8.5 % (3.3-12.3); Nucleated Red Blood Cells % 0.1 % (0-0); Platelets 402 thou/uL (152-406); RBC Red Blood Cell Count 5.17 M/uL (3.86-4.86); Red Cell Distribution Width 12.8 % (12.1-15.2)
[2024-06-04 12:37] LABS: PT Prothrombin Time 11.6 SECONDS (10-13.0); Protime INR 1.02
[2024-06-04] MEDS ORDERED: TENECTEPLASE 50 MG/10 ML VIAL IV ONE (12:37)
--- NOTE | 2024-06-04 12:38 | RAD REPORT ---
EXAM: CT Ct Stroke Brain Wo Cont HISTORY: STROKE ALERT COMPARISON: 08/05/2020 TECHNIQUE: Multiple contiguous axial images were obtained for a CT of the brain without contrast. Sag ittal and coronal reformats were performed. One or more of the following dose reduction techniques were used: Automated exposure control, adjus tment of the mA and kV according to patient size, and iterative reconstruction. Unless otherwise specified, incidental findings do not require dedicated imaging follow-up. FINDINGS: No evidence of hydrocephalus, intracranial hemorrhage, or extra-axial fluid collection. The brain is normal in morphology. The calvarium is intact. Mucus retention cyst in the right maxillary sinus. Mastoid air cell patchy o pacification on the left. IMPRESSION: No evidence of acute intracranial abnormality. THIS REPORT CONTAINS FINDINGS THAT MAY BE CRITICAL TO PATIENT CARE. The findings were verbally commun icated via telephone to Moshe Poon MD on 06/04/2024 12:34 PM.
--- NOTE | 2024-06-04 12:43 | RAD REPORT ---
EXAMINATION: CT Neck Angio CLINICAL INDICATION: Female, 49 years old. [facility] MAIN PAIN Bed:11 TECHNIQUE: Axial CT images were obtained from the aortic arch to the skull base after intravenous con trast utilizing angiographic protocol. Multiplanar reformats, as well as 3D post-processing (maximum intensity projection images, volume rendered images and/or shaded surface rendered images) w ere generated and reviewed. One or more of the following dose reduction techniques were used: Automated exposure control, adjustment of the mA and/or kV according to patient size, and/or iterativ e reconstruction. Unless otherwise specified, incidental findings do not require dedicated imaging follow-up. COMPARISON: No prior exam. FINDINGS: AORTA: The imaged aortic arch is normal. Normal three-vessel configuration of the arch. CCA: No artifact The common carotid arteries are patent and normal in caliber. ICA/ECA: Bilateral internal and external carotid arteries are patent. There is no significant interna l carotid artery stenosis. VERTEBRAL: The cervical vertebral arteries are patent to the skull base. 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 SOFT TISSUE: Asymmetric nodular thickening in the right tonsillar fossa/glossotonsillar recess, with no significant encroachment upon the parapharyngeal fat. Asymmetric prominent right level 2A lymph node measuring up to 8 mm in short axis. The visualized lung apices are clear. 3D images confirm these findings. IMPRESSION: No significant flow abnormality of the neck vessels is identified. Asymmetric nodular mucosal thickening in the right palatine tonsillar fossa/glossotonsillar recess. D irect visualization and/or ENT consultation recommended. Nonspecific prominent asymmetric right level 2A lymph node. NASCET criteria used to quantify ICA stenosis, with the following grading scheme: Mild 0-49% stenosis Moderate 50-69% stenosis Severe 70-99% stenosis Reference: [place] Symptomatic Carotid Endarterectomy Trial Collaborators; Tobias DEVLINM, Erica DW, Chante RB, et al. Beneficial effect of carotid endarterectomy in symptomatic patients with high-grade carotid stenosis. N Engl J Med. 1990Oct 18;325(7):445-53.
--- NOTE | 2024-06-04 12:49 | RAD REPORT ---
EXAMINATION: CTA HEAD CLINICAL INDICATION: Female, 49 years old. STROKE ALERT TECHNIQUE: Axial CT images were obtained through the head after intravenous contrast utilizing angiog raphic protocol with 3D post-processing (maximum intensity projection images, volume rendered images and/or shaded surface rendered images). One or more of the following dose reduction technique s were used: Automated exposure control, adjustment of the mA and/or kV according to patient size, and/or iterative reconstruction. Unless otherwise specified, incidental findings do not require dedic ated imaging follow-up. COMPARISON: No prior exam. FINDINGS: ICA: The petrous, cavernous, and supraclinoid segments of the bilateral internal carotid arteries are normal. STEFANY: Anterior cerebral arteries are normal bilaterally. The anterior communicating artery is patent. MCA: Middle cerebral arteries are normal bilaterally. COMPUTER TYPESETTER: Posterior cerebral arteries are normal bilaterally. Vertebrobasilar: Basilar artery is patent to the tip. The vertebral arteries are patent, with fenestr ation along the distal right vertebral artery. Left vertebral artery is diminutive and terminates as, left PICA/AICA trunk. 3D images confirm these findings. IMPRESSION: No evidence of large vessel occlusion or hemodynamically significant stenosis.
[2024-06-04 12:52] LABS: ALT/SGPT 22 U/L (13-56); AST/SGOT 16 U/L (15-37); Albumin 3.5 g/dL (3.4-5.0); Albumin/Globulin Ratio 0.8 (1.1-1.8); Alkaline Phosphatase 78 U/L (45-117); Anion Gap 5.1 mEq/L (5.0-15.0); BUN Blood Urea Nitrogen 15 mg/dL (7-18); Bicarbonate 30 mEq/L (21-32); Bilirubin Total 0.4 mg/dL (0.2-1.0); Globulin 4.5 g/dL (2.3-3.5); Glomerular Filtration Rate 84 ml/min (=/>90); Glucose Level 86 mg/dL (74-106); Magnesium 2.2 mg/dL (1.6-2.4); NT PRO-BNP 83 pg/mL (<125); Potassium 4.1 mEq/L (3.5-5.1); Sodium Level 139 mEq/L (136-145)
[2024-06-04 13:00] LABS: Bilirubin Direct < 0.2 mg/dL (0-0.2); Bilirubin Indirect, Calculated 0.2 mg/dL (0.2-0.8)
--- NOTE | 2024-06-04 13:19 | RAD REPORT ---
EXAMINATION: ONE VIEW CHEST XR CLINICAL INDICATION: COUGH TECHNIQUE: Frontal chest projection is submitted. Examination is limited by patient positioning and t echnique. COMPARISON: 08/05/2020 FINDINGS: Mild bilateral pulmonary opacities representing pulmonary edema or pneumonia. The heart is upper limi t of normal in size. No displaced fractures identified.
[2024-06-04] MEDS ORDERED: NA CHLORIDE 0.9% 1,000 ML ONE (13:26)
--- NOTE | 2024-06-04 14:12 | RAD REPORT ---
EXAMINATION: MRI BRAIN WITHOUT CONTRAST CLINICAL INDICATION: SLURRED SPEECH TECHNIQUE: Multiplanar multisequence MR images of the brain were obtained without intravenous contras t. Unless otherwise specified, incidental findings do not require dedicated imaging follow-up. COMPARISON: No prior exam. FINDINGS: INTRACRANIAL: Diffusion-weighted images show no acute or early subacute infarction. No abnormal brain parenchymal signal. The ventricles are normal in size and morphology. No augmented susceptibility. There is no mass effect or midline shift. No abnormal extraaxial fluid collection. VASCULATURE: Normal signal voids in the larger intracranial arteries and dural venous sinuses. SINUSES: Mild left mastoid effusion. Small polyp or mucous retention cyst noted right maxillary antru m. BONE: The marrow signal pattern is within normal limits. IMPRESSION: Negative for acutre CVA or other acute intracranial finding.
[2024-06-04] MEDS ORDERED: ATORVASTATIN 40 MG TAB ONE (15:02)
--- NOTE | 2024-06-04 15:24 | EDPHYS ---
Physician Documentation [facility] Name: Tamika Villalobos Age: 49 yrs Sex: Female : 1975 Arrival Date: 06/04/2024 Time: 11:41 Bed 11 Private MD: ZBIGNIEW Physician Moshe Poon HPI: 06/04 15:13 This 49 yrs old Female presents to ER via Ambulatory with complaints of Slurred Speech. katelin 15:13 The patient presents to the emergency department with weakness of the left upper katelin extremity, left lower extremity, that is mild, a speech or higher order brain function problem, aphasia, that is moderate, difficulty standing, the patient falls to the left, difficult walking, the patient falls to the left, paresthesias of the left upper extremity. Onset: The symptoms/episode began/occurred at 09:00. Context: occurred at home. Associated signs and symptoms: Pertinent positives: headache, paresthesias. Severity of symptoms: At their worst the symptoms were moderate in the emergency department the symptoms are unchanged. Patient's baseline: Neuro: alert and fully oriented. Current symptoms: headache, paralysis or paresis, of the left arm and left leg, that is mild. The patient has not experienced similar symptoms in the past. Historical: - Allergies: 12:09 PENICILLINS; cm10 - Home Meds: 15:19 Nabb Thyroid Oral daily [Active]; ezetimibe 10 mg oral tablet daily [Active]; iw - PMHx: 12:09 Depression; HASHIMOTOS; cm10 - PSHx: 19:17 Tonsillectomy; Appendectomy; iw - Immunization history:: Adult Immunizations up to date. - Infectious Disease History:: Denies. - Social history:: Smoking status: unknown. - Family history:: not pertinent. ROS: 15:13 Constitutional: Negative for fever, chills, and weight loss, Eyes: Negative for injury, katelin pain, redness, and discharge, ENT: Negative for injury, pain, and discharge, Neck: Negative for injury, pain, and swelling, Cardiovascular: Negative for chest pain, palpitations, and edema, Respiratory: Negative for shortness of breath, cough, wheezing, and pleuritic chest pain, Abdomen/GI: Negative for abdominal pain, nausea, vomiting, diarrhea, and constipation, Back: Negative for injury and pain, : Negative for injury, bleeding, discharge, and swelling, Neuro: Negative for headache, weakness, numbness, tingling, and seizure, Psych: Negative for depression, anxiety, suicide ideation, homicidal ideation, and hallucinations, Allergy/Immunology: Negative for hives, rash, and allergies, Endocrine: Negative for neck swelling, polydipsia, polyuria, polyphagia, and marked weight changes, 15:13 MS/extremity: Positive for paresthesias, of the left arm and left leg, 15:13 Neuro: Positive for speech changes, weakness, of the left arm and left leg, Exam: 15:13 Constitutional: This is a well developed, well nourished patient who is awake, alert, katelin and in no acute distress. Head/Face: Normocephalic, atraumatic. Eyes: Pupils equal round and reactive to light, extra-ocular motions intact. Lids and lashes normal. Conjunctiva and sclera are non-icteric and not injected. Cornea within normal limits. Periorbital areas with no swelling, redness, or edema. ENT: Nares patent. No nasal discharge, no septal abnormalities noted. Tympanic membranes are normal and external auditory canals are clear. Oropharynx with no redness, swelling, or masses, exudates, or evidence of obstruction, uvula midline. Mucous membranes moist. Neck: Trachea midline, no thyromegaly or masses palpated, and no cervical lymphadenopathy. Supple, full range of motion without nuchal rigidity, or vertebral point tenderness. No Meningismus. Chest/axilla: Normal chest wall appearance and motion. Nontender with no deformity. No lesions are appreciated. Cardiovascular: Regular rate and rhythm with a normal S1 and S2. No gallops, murmurs, or rubs. Normal PMI, no JVD. No pulse deficits. Respiratory: Lungs have equal breath sounds bilaterally, clear to auscultation and percussion. No rales, rhonchi or wheezes noted. No increased work of breathing, no retractions or nasal flaring. Abdomen/GI: Soft, non-tender, with normal bowel sounds. No distension or tympany. No guarding or rebound. No evidence of tenderness throughout. Back: No spinal tenderness. No costovertebral tenderness. Full range of motion. Skin: Warm, dry with normal turgor. Normal color with no rashes, no lesions, and no evidence of cellulitis. MS/ Extremity: Pulses equal, no cyanosis. Neurovascular intact. Full, normal range of motion., bilateral aka Neuro: Awake and alert, GCS 15, oriented to person, place, time, and situation. Cranial nerves II-XII grossly intact. Motor strength 5/5 in all extremities. Sensory grossly intact. Cerebellar exam normal. Normal gait. Psych: Awake, alert, with orientation to person, place and time. Behavior, mood, and affect are within normal limits. 15:13 ECG was reviewed by the Attending Physician. Vital Signs: 13:17 BP 135 / 82; Pulse 68; Resp 16; Temp 98.1; Pulse Ox 100% on R/A; Weight 75 kg (M); Pain iw 5/10; 13:30 BP 132 / 84; Pulse 67; Resp 16; Pulse Ox 98% on R/A; iw 14:00 BP 154 / 84; Pulse 65; Resp 16; Pulse Ox 99% on R/A; iw 14:15 BP 157 / 90; Pulse 63; Resp 16; Pulse Ox 100% on R/A; iw 13:17 Pain Scale: Adult NIH Stroke Scale Scores: 12:12 NIHSS Score: 2 cm10 15:13 NIHSS Score: 4 katelin MDM: 12:00 Medical Screening Exam initiated katelin 15:18 Data reviewed: vital signs, nurses notes, lab test result(s), EKG, radiologic studies, [facility] CT scan, doppler, MRI, plain films. 06/04 12:07 Order name: Basic Metabolic Panel [facility] 06/04 12:07 Order name: CBC with Diff [facility] 06/04 12:07 Order name: LFT's [facility] 06/04 12:07 Order name: Magnesium [facility] 06/04 12:07 Order name: NT PRO-BNP [facility] 06/04 12:07 Order name: PT-INR [facility] 06/04 12:07 Order name: Troponin HS [facility] 06/04 12:07 Order name: Urinalysis w/ reflexes [facility] 06/04 12:51 Order name: CREATININE WHOLE BLOOD [facility] 06/04 13:11 Order name: Lipid Profile 06/04 15:08 Order name: High Sensitivity-CRP [facility] 06/04 17:17 Order name: CBC with Automated Diff [facility] 06/04 17:17 Order name: CBC with Automated Diff [facility] 06/04 17:17 Order name: Comprehensive Metabolic Panel [facility] 06/04 17:17 Order name: Comprehensive Metabolic Panel [facility] 06/04 17:17 Order name: Lipid Profile [facility] 06/04 17:17 Order name: Lipid Profile [facility] 06/04 17:17 Order name: Magnesium [facility] 06/04 17:17 Order name: Magnesium [facility] 06/04 17:17 Order name: Phosphorus [facility] 06/04 17:17 Order name: Phosphorus [facility] 06/04 12:07 Order name: XRAY Chest (1 view) [facility] 06/04 12:07 Order name: CT Stroke Brain w/o Contrast [facility] 06/04 12:07 Order name: CT Head Angio [facility] 06/04 12:07 Order name: CT Neck Angio [facility] 06/04 14:00 Order name: Brain Wo Cont [facility] 06/04 17:17 Order name: Echo with Doppler [facility] 06/04 17:17 Order name: Physical Therapy Consult [facility] 06/04 17:17 Order name: Speech Therapy Consult [facility] 06/04 12:07 Order name: Cardiac monitoring; Complete Time: 13:43 [facility] 06/04 12:07 Order name: EKG - Nurse/Tech; Complete Time: 12:30 [facility] 06/04 12:07 Order name: IV Saline Lock; Complete Time: 12:30 [facility] 06/04 12:07 Order name: Labs collected and sent; Complete Time: 12:30 [facility] 06/04 12:07 Order name: O2 Per Protocol; Complete Time: 12:30 [facility] 06/04 12:07 Order name: O2 Sat Monitoring; Complete Time: 12:30 [facility] EC:13 Rate is 65 beats/min. Rhythm is regular. QRS Maybell is Normal. GA interval is normal. QRS katelin interval is normal. QT interval is normal. No Q waves. T waves are Normal. No ST changes noted. Clinical impression: NSR w/ Non-specific ST/T Changes and No evidence of ischemia. Interpreted by me. Reviewed by me. Administered Medications: 13:00 Drug: TNK FOR STROKE - Tenecteplase IV (Administer 10 ml NS flush BEFORE and iw AFTER tenecteplase) 19 mg IV at per protocol once; 0.25mg/kg, MAX DOSE 25 mg, IVP over 5 seconds {Co-Signature: [email or web address] (Shawanda Cruz RN).} Route: IV; Rate: per protocol; Site: right antecubital; 13:01 Follow up: IV Status: Completed infusion iw 13:50 Drug: NS 0.9% IV 1000 ml IV at 1000 ml once; to be given as a bolus over 60 minutes iw Route: IV; Rate: 1000 ml; Site: right antecubital; 18:28 Follow up: IV Status: Completed infusion iw 15:19 Not Given (Patient Refused): [id number] mg PO once iw 19:51 Not Given (Patient Refused): folic acid1 mg IVPB once iw Disposition Summary: 06/04/24 15:23 Hospitalization Ordered Notes: Provider: Diogenes Cisse cha Condition: Stable katelin Problem: new katelin Symptoms: have improved katelin Bed/Room Type: Standard katelin Hospitalization Status: Inpatient Admission(06/04/24 18:00) bd Location: Intensive Care Unit(06/04/24 18:00) bd Room Assignment: 4-(06/04/24 18:00) bd Diagnosis - Transient cerebral ischemic attack, unspecified katelin - Aphasia katelin - Abnormal findings on diagnostic imaging of other specified body structures - right katelin tonsillar mass Forms: - Medication Reconciliation Form katelin - SBAR form katelin - Leadership Thank You Letter [facility] NIH Stroke Scale - NIH Stroke Score Date: 06/04/2024 Time: 12:12 Total Score = 2 10. Dysarthria (speech clarity - read or repeat words) - 0(Normal) 11. Extinction and Inattention (visual/tactile/auditory/spatial/personal) - 0(No abnormality) 1a. Level of Consciousness (LOC) - 0(Alert) 1b. Level of Consciousness (LOC) (Month \T\ Age) - 0(Both) 1c. LOC Commands (Open \T\ Closes Eyes/Wood Inspector) - 0(Both) 2. Best Gaze (Lateral Gaze Paresis) - 0(Normal) 3. Visual Field Loss - 0(No visual loss) 4. Facial Palsy - 0(Normal) 5a. Left Arm: Motor (10-second hold) - 0(No drift) 5b. Right Arm: Motor (10-second hold) - 0(No drift) 6a. Left Leg: Motor (5-second hold - always test supine) - 1(Drift) 6b. Right Leg: Motor (5-second hold - always test supine) - 0(No drift) 7. Limb Ataxia (finger/nose \T\ heel/johnson - test with eyes open) - 0(Absent) 8. Sensory Loss (pinprick arms/legs/face) - 1(Mild to moderate loss) 9. Best Language: Aphasia (description/naming/reading) - 0(No aphasia) Initials: [email or web address] NIH Stroke Scale - NIH Stroke Score Date: 06/04/2024 Time: 15:13 Total Score = 4 10. Dysarthria (speech clarity - read or repeat words) - 0(Normal) 11. Extinction and Inattention (visual/tactile/auditory/spatial/personal) - 0(No abnormality) 1a. Level of Consciousness (LOC) - 0(Alert) 1b. Level of Consciousness (LOC) (Month \T\ Age) - 0(Both) 1c. LOC Commands (Open \T\ Closes Eyes/Wood Inspector) - 0(Both) 2. Best Gaze (Lateral Gaze Paresis) - 0(Normal) 3. Visual Field Loss - 0(No visual loss) 4. Facial Palsy - 0(Normal) 5a. Left Arm: Motor (10-second hold) - 0(No drift) 5b. Right Arm: Motor (10-second hold) - 0(No drift) 6a. Left Leg: Motor (5-second hold - always test supine) - 1(Drift) 6b. Right Leg: Motor (5-second hold - always test supine) - 0(No drift) 7. Limb Ataxia (finger/nose \T\ heel/johnson - test with eyes open) - 1(Present in one limb) 8. Sensory Loss (pinprick arms/legs/face) - 1(Mild to moderate loss) 9. Best Language: Aphasia (description/naming/reading) - 1(Mild to moderate aphasia) Initials: katelin Signatures: Dispatcher [employer] EDMS Wendy Miramontes Corey, MD MD cha Williams, Irene, RN RN iw Shawanda Cruz RN RN jl7 Kassie Regalado RN RN cm10 Shawanda Cruz RN jl7 Corrections: (The following items were deleted from the chart) 12:07 12:07 BASIC METABOLIC PANEL+C.LAB.BRZ ordered. EDMS EDMS 12:07 12:07 CBC+H.LAB.BRZ ordered. EDMS EDMS 12:07 12:07 HEPATIC FUNCTION+C.LAB.BRZ ordered. EDMS EDMS 12:07 12:07 MAGNESIUM+C.LAB.BRZ ordered. EDMS EDMS 12:07 12:07 PROBNP+C.LAB.BRZ ordered. EDMS EDMS 12:07 12:07 PROTIME (+INR)+COAG.LAB.BRZ ordered. EDMS EDMS 12:07 12:07 Troponin High Sensitivity+C.LAB.BRZ ordered. EDMS EDMS 12:07 12:07 Urinalysis+U.LAB.BRZ ordered. EDMS EDMS 12:08 12:08 Chest Single View+RAD.RAD.BRZ ordered. EDMS EDMS 12:08 12:08 CT-STROKE BRAIN W/O CONTRAST+CT.RAD.BRZ ordered. EDMS EDMS 12:08 12:08 Head Angio+CT.RAD.BRZ ordered. EDMS EDMS 12:08 12:08 Neck Angio+CT.RAD.BRZ ordered. EDMS EDMS 12:08 12:08 MR STROKE PROTOCOL+MRI.RAD.BRZ ordered. EDMS EDMS 12:17 12:10 Head Brain Wo Cont ordered. EDMS EDMS 12:18 12:10 Head angio ordered. EDMS EDMS 12:18 12:10 Neck Angio ordered. EDMS EDMS 15:08 14:17 C-REACTIVE PROTEIN+C.LAB.BRZ ordered. EDMS EDMS 16:51 15:23 Telemetry/MedSurg (observation) katelin jl7 16:51 15:23 katelin jl7 17:59 16:51 [facility] ER HOLD jl7 jl7 17:59 16:51 ERHOLD- jl7 jl7 18:00 15:23 Observation katelin bd 18:00 17:59 Intensive Care Unit jl7 bd 18:00 17:59 4- jl7 bd
--- NOTE | 2024-06-04 15:24 | ER ---
Nurse's Notes [facility] Name: Tamika Villalobos Age: 49 yrs Sex: Female : 1975 Arrival Date: 06/04/2024 Time: 11:41 Bed 11 Private MD: Diagnosis: Transient cerebral ischemic attack, unspecified;Aphasia;Abnormal findings on diagnostic imaging of other specified body structures-right tonsillar mass Presentation: 06/04 12:10 Chief complaint: Patient states: SLURRED SPEECH ONSET TODAY AT 0900. PT REPORTS CHEST cm10 PAIN THAT RADIATES TO BACK AND NUMBNESS TO LEFT ARM. Coronavirus screen: Client denies travel out of the [place] in the last 14 days. Ebola Screen: Patient denies travel to an Ebola-affected area in the 21 days before illness onset. An acute neurological deficit is present. The charge nurse has been notified. Initial Sepsis Screen:. Onset of symptoms was June 04, 2024 at 09:00. 12:10 Method Of Arrival: Ambulatory cm10 12:10 Acuity: NIK 2 cm10 12:10 Pre-hospital glucose is not applicable to this patient. Initial Sepsis Screen: Does the iw patient have a suspected source of infection? No. Patient's initial sepsis screen is negative. Initial Sepsis Screen: Does the patient meet any 2 criteria? No. Patient's initial sepsis screen is negative. Risk Assessment: Do you want to hurt yourself or someone else? Patient reports no desire to harm self or others. Triage Assessment: 12:10 The onset of the patients symptoms was June 04, 2024 at 09:00. iw Stroke Activation: Symptom onset < 3 hours Physician: ED Attending; Name: LOLIS; Notified At: 12:00; Arrived At: Physician: Mid-Level Provider; Name: ; Notified At: 12:00; Arrived At: Physician: [not used]; Name: ; Notified At: ; Arrived At: Physician: [not used]; Name: ; Notified At: ; Arrived At: Physician: [not used]; Name: ; Notified At: ; Arrived At: Historical: - Allergies: 12:09 PENICILLINS; cm10 - Home Meds: 15:19 [place] Thyroid Oral daily [Active]; ezetimibe 10 mg oral tablet daily [Active]; iw - PMHx: 12:09 Depression; HASHIMOTOS; cm10 - PSHx: 19:17 Tonsillectomy; Appendectomy; iw - Immunization history:: Adult Immunizations up to date. - Infectious Disease History:: Denies. - Social history:: Smoking status: unknown. - Family history:: not pertinent. Screenin:00 [facility] ED Fall Risk Assessment (Adult) History of falling in the last 3 months, iw including since admission No falls in past 3 months (0 pts) Confusion or Disorientation No (0 pts) Intoxicated or Sedated No (0 pts) Impaired Gait No (0 pts) Mobility Assist Device Used No (0 pt) Altered Elimination No (0 pt) Score/Fall Risk Level 0 - 2 = Low Risk Oriented to surroundings, Maintained a safe environment. Abuse screen: Denies threats or abuse. Denies injuries from another. Nutritional screening: No deficits noted. Tuberculosis screening: No symptoms or risk factors identified. 13:16 [place] Swallow Protocol Exclusion Criteria: Unable to remain alert for testing: No NPO iw for medical/surgical reason by provider order No Tracheostomy tube present No No thin liquids due to preexisting dysphagia/baseline modified diet thickened liquids No Exclusion Criteria Result: Proceed Brief Cognitive Screen What is your name? Normal, Where are you right now? Normal, What year is it? Normal. Oral Mechanism Examination Facial Symmetry: Normal, Motion: Normal, Lip Closure: Normal, Oral Mechanism Result: Normal. 3 oz Water Swallow Challenge: Pt able to drink all water without stopping, coughing, choking or throat clearing: Yes Result: PASS MD Notified: Moshe Poon MD. Assessment: 12:00 General: CODE STROKE CALLED AT THIS TIME.. cm10 12:30 Reassessment: Lolis Israel at bedside to assess pt, and to consent pt for TNK. iw 12:30 VAN Scoring: Arm Drift: Patients demonstrates NO arm weakness. Patient is VAN Negative. iw Visual Disturbance: No visual disturbance noted. Aphasia: No aphasia noted. Neglect: No neglect noted. 12:30 General: Appears in no apparent distress. comfortable, Behavior is calm, cooperative. iw Pain: Complains of pain in anterior aspect of left upper chest Pain currently is 5 out of 10 on a pain scale. Neuro: Level of Consciousness is awake, alert, obeys commands, Oriented to person, place, time, situation, Moves all extremities. Full function Speech is normal, Facial symmetry appears normal, Pupils are PERRLA, Numbness in left bicep and dorsal aspect of left forearm. Cardiovascular: Patient's skin is warm and dry. Respiratory: Respiratory effort is even, unlabored, Respiratory pattern is regular, symmetrical. 12:55 Reassessment: pt consents to TNK, with daughter in law at bedside and on phone. iw 12:55 TNKase (Tenecteplase) Screening: Indications: Definite evidence of stroke, ischemic, iw embolic, or hypertensive: Yes. Treatment will start within 4.5 hours onset of symptoms: Yes. No evidence of intracranial hemorrhage or CT of head and no evidence of peripheral hemorrhage or recent CVA: Yes. Consent for thrombolytic therapy: Yes. 13:35 Reassessment: pt transported to MRI via wheelchair. iw 15:00 Reassessment: pt ambulatory to bathroom with family assistance. iw 16:00 Reassessment: Patient appears in no apparent distress at this time. Patient and/or iw family updated on plan of care and expected duration. Pain level reassessed. Patient is alert, oriented x 3, equal unlabored respirations, skin warm/dry/pink. family remains at bedside, pt reports mild headache that she has had since OVEREDGER. Vital Signs: 13:17 BP 135 / 82; Pulse 68; Resp 16; Temp 98.1; Pulse Ox 100% on R/A; Weight 75 kg (M); Pain iw 5/10; 13:30 BP 132 / 84; Pulse 67; Resp 16; Pulse Ox 98% on R/A; iw 14:00 BP 154 / 84; Pulse 65; Resp 16; Pulse Ox 99% on R/A; iw 14:15 BP 157 / 90; Pulse 63; Resp 16; Pulse Ox 100% on R/A; iw 13:17 Pain Scale: Adult iw NIH Stroke Scale Scores: 12:12 NIHSS Score: 2 cm10 15:13 NIHSS Score: 4 katelin ED Course: 11:42 Patient arrived in ED. mr 11:59 Moshe Poon MD is Attending Physician. katelin 12:[address] via wheelchair. cm10 12:10 Inserted saline lock: 20 gauge in right antecubital area, using aseptic technique. iw Blood collected. Flushed with 10 mL NS. Inserted Inserted by ALANNAH Fernando. 12:11 Triage completed. cm10 12:19 CT Stroke Brain w/o Contrast In Process Unspecified. EDMS 12:19 CT Head Angio In Process Unspecified. EDMS 12:20 CT Neck Angio In Process Unspecified. EDMS 12:30 Shereen Gamez RN is Primary Nurse. iw 12:55 Patient has correct armband on for positive identification. Bed in low position. Call iw light in reach. Side rails up X2. Provided Education on: TNK admin. 13:12 XRAY Chest (1 view) In Process Unspecified. EDMS 14:00 Brain Wo Cont In Process Unspecified. EDMS 15:21 Diogenes Cisse MD is Hospitalizing Provider. katelin 16:00 No provider procedures requiring assistance completed. Patient admitted, IV remains in iw place. 19:32 Primary Nurse role handed off by Shereen Gamez RN rv1 19:46 Shereen Gamez RN is Primary Nurse. iw Administered Medications: 13:00 Drug: TNK FOR STROKE - Tenecteplase IV (Administer 10 ml NS flush BEFORE and iw AFTER tenecteplase) 19 mg IV at per protocol once; 0.25mg/kg, MAX DOSE 25 mg, IVP over 5 seconds {Co-Signature: [email or web address] (Shawanda Cruz RN).} Route: IV; Rate: per protocol; Site: right antecubital; 13:01 Follow up: IV Status: Completed infusion iw 13:50 Drug: NS 0.9% IV 1000 ml IV at 1000 ml once; to be given as a bolus over 60 minutes iw Route: IV; Rate: 1000 ml; Site: right antecubital; 18:28 Follow up: IV Status: Completed infusion iw 15:19 Not Given (Patient Refused): [id number] mg PO once iw 19:51 Not Given (Patient Refused): folic acid1 mg IVPB once iw Medication: 12:10 VIS not applicable for this client. iw Outcome: 15:23 Decision to Hospitalize by Provider. katelin 19:18 Admitted to ICU accompanied by nurse, via wheelchair, room bed 4 , Report called to iw ALANNAH Frederick 19:18 Condition: good 19:18 Discharge instructions given to patient, family, Instructed on the need for admit, Demonstrated understanding of instructions, 19:46 Patient left the ED. iw NIH Stroke Scale - NIH Stroke Score Date: 06/04/2024 Time: 12:12 Total Score = 2 10. Dysarthria (speech clarity - read or repeat words) - 0(Normal) 11. Extinction and Inattention (visual/tactile/auditory/spatial/personal) - 0(No abnormality) 1a. Level of Consciousness (LOC) - 0(Alert) 1b. Level of Consciousness (LOC) (Month \T\ Age) - 0(Both) 1c. LOC Commands (Open \T\ Closes Eyes/Facing End Trimmer) - 0(Both) 2. Best Gaze (Lateral Gaze Paresis) - 0(Normal) 3. Visual Field Loss - 0(No visual loss) 4. Facial Palsy - 0(Normal) 5a. Left Arm: Motor (10-second hold) - 0(No drift) 5b. Right Arm: Motor (10-second hold) - 0(No drift) 6a. Left Leg: Motor (5-second hold - always test supine) - 1(Drift) 6b. Right Leg: Motor (5-second hold - always test supine) - 0(No drift) 7. Limb Ataxia (finger/nose \T\ heel/johnson - test with eyes open) - 0(Absent) 8. Sensory Loss (pinprick arms/legs/face) - 1(Mild to moderate loss) 9. Best Language: Aphasia (description/naming/reading) - 0(No aphasia) Initials: cm10 NIH Stroke Scale - NIH Stroke Score Date: 06/04/2024 Time: 15:13 Total Score = 4 10. Dysarthria (speech clarity - read or repeat words) - 0(Normal) 11. Extinction and Inattention (visual/tactile/auditory/spatial/personal) - 0(No abnormality) 1a. Level of Consciousness (LOC) - 0(Alert) 1b. Level of Consciousness (LOC) (Month \T\ Age) - 0(Both) 1c. LOC Commands (Open \T\ Closes Eyes/Facing End Trimmer) - 0(Both) 2. Best Gaze (Lateral Gaze Paresis) - 0(Normal) 3. Visual Field Loss - 0(No visual loss) 4. Facial Palsy - 0(Normal) 5a. Left Arm: Motor (10-second hold) - 0(No drift) 5b. Right Arm: Motor (10-second hold) - 0(No drift) 6a. Left Leg: Motor (5-second hold - always test supine) - 1(Drift) 6b. Right Leg: Motor (5-second hold - always test supine) - 0(No drift) 7. Limb Ataxia (finger/nose \T\ heel/johnson - test with eyes open) - 1(Present in one limb) 8. Sensory Loss (pinprick arms/legs/face) - 1(Mild to moderate loss) 9. Best Language: Aphasia (description/naming/reading) - 1(Mild to moderate aphasia) Initials: [facility] Signatures: Dispatcher [employer] EDMoshe Jurado, MD MD katelin Gleason, Alejandrina, Reg Reg mr Shereen Gamez, RN RN iw Caprice Lew rv1 Kassie Regalado RN RN cm10 Shawanda Cruz RN jl7 Corrections: (The following items were deleted from the chart) 12:12 12:00 NIHSS Score: 2 cm10 cm10 13:18 13:17 BP 135 / 82; Pulse 68bpm; Resp 16bpm; Pulse Ox 100% RA; Temp 98.1F; 34.02 iw kg Measured; Pain 5/10, Adult; iw 14:47 13:45 BP 154 / 84; Pulse 65bpm; Resp 16bpm; Pulse Ox 99% RA; iw iw
--- NOTE | 2024-06-04 16:29 | P.HP ---
Patient History Date of Service: 06/04/24 Allergies Penicillins Allergy (Verified 06/05/14 15:22) Rash Home Medications: Cyanocobalamin (Vitamin B-12) [Vitamin B-12] 1,000 mcg PO DAILY 06/05/14 Hydrocodone/Acetaminophen [Vicodin 5-325 mg Tablet] 1 each PO Q4H PRN #20 tablet 06/09/14 Sulfamethoxazole/Trimethoprim [Bactrim Ds Tablet] 1 each PO BID #12 tablet 06/09/14 Physical Examination - Studies Laboratory Data (last 24 hrs) 06/04/24 06/04/24 06/04/24 14:55 12:14 12:14 WBC 7.60 Hgb 16.3 H Hct 46.2 H Plt Count 402 PT 11.6 INR 1.02 Sodium Potassium BUN Creatinine Glucose Magnesium Total Bilirubin AST ALT Alkaline Phosphatase Triglycerides 114 Cholesterol 201 H HDL Cholesterol 44 Cholesterol/HDL Ratio 4.57 06/04/24 12:14 WBC Hgb Hct Plt Count PT INR Sodium 139 Potassium 4.1 BUN 15 Creatinine 0.85 Glucose 86 Magnesium 2.2 Total Bilirubin 0.4 AST 16 ALT 22 Alkaline Phosphatase 78 Triglycerides Cholesterol HDL Cholesterol Cholesterol/HDL Ratio Assessment and Plan - Advance Directives Does patient have a Living Will: No Does patient have a Durable POA for Healthcare: No
[2024-06-04] MEDS ORDERED: ACETAMINOPHEN 500 MG TAB PO PRN (17:12)
[2024-06-04] MEDS ORDERED: ONDANSETRON 4 MG/2 ML VIAL IV PRN (17:12)
[2024-06-04] MEDS: NA CHLORIDE 0.9% 1,000 ML IV SCH (18:00)
[2024-06-04] MEDS ORDERED: ALPRAZOLAM 0.25 MG TABLET PO PRN (19:07)
[2024-06-04 20:00] VITALS: O2SAT 100
[2024-06-04] MEDS: ATORVASTATIN 40 MG TAB PO SCH (21:14)
[2024-06-04 22:28] VITALS: BMI 25.7
[2024-06-05 06:02] LABS: Absolute Basophils 0.1 K/uL (0-0.5); Absolute Eosinophils 0.2 K/uL (0-0.5); Absolute Monocytes 0.5 K/uL (0.1-1.3); Absolute Neutrophil 4.7 K/uL (1.8-8.0); Basophils % 0.8 % (0-1.3); Eosinophils % 2.4 % (0-4.4); Hematocrit 40.9 % (36.0-45.0); Hemoglobin 14.1 g/dL (12.0-15.0); Lymphocytes % 26.3 % (15.3-44.8); MCH 30.8 pg (27.0-35.0); MCHC 34.3 g/dL (32.0-36.0); MCV 89.8 fL (80-100); MPV 8.6 fL (7.6-11.3); Monocytes % 7.3 % (3.3-12.3); Neutrophils % 63.2 % (41.7-73.7); Nucleated Red Blood Cells % 0.1 % (0-0); Platelets 337 thou/uL (152-406); RBC Red Blood Cell Count 4.56 M/uL (3.86-4.86); Red Cell Distribution Width 12.7 % (12.1-15.2)
[2024-06-05 06:15] LABS: Albumin 2.8 g/dL (3.4-5.0); Albumin/Globulin Ratio 0.8 (1.1-1.8); Anion Gap 6.5 mEq/L (5.0-15.0); Bilirubin Total 0.4 mg/dL (0.2-1.0); Globulin 3.4 g/dL (2.3-3.5); Phosphorus 2.4 mg/dL (2.5-4.9); Potassium 4.5 mEq/L (3.5-5.1); Protein, Total 6.2 g/dL (6.4-8.2)
[2024-06-05 09:02] LABS: Specific Gravity 1.009 (1.005-1.030); Urine Bilirubin NEGATIVE (Negative); Urine Blood Negative (Negative); Urine Clarity Clear (Clear); Urine Color Colorless (Yellow); Urine Glucose NEGATIVE (Negative); Urine Ketones NEGATIVE (Negative); Urine Microscopic Reflex YN NO UMIC; Urine Nitrite NEGATIVE (Negative); Urine Protein NEGATIVE (Negative); Urine Urobilinogen Normal (Normal); Urine pH 7.5 (5.0-7.0)
--- NOTE | 2024-06-05 11:48 | ECHO ---
HEIGHT: 5 ft 5 in WEIGHT: 155 lb 0 oz DATE OF STUDY: 06/05/[address]: Diogenes Cisse MD 2-DIMENSIONAL: YES M.MODE: YES DOPPLER: YES COLOR FLOW: YES TDS: PORTABLE: YES DEFINITY: BUBBLE STUDY: YES DIAGNOSIS: STOKE/ TRANSIENT ISCHEMIC ATTACK CARDIAC HISTORY: CATHERIZATION: SURGERY: PROSTHETIC VALVE: PACEMAKER: MEASUREMENTS (cm) DIASTOLIC (NORMALS) SYSTOLIC (NORMALS) IVSd 0.9 (0.6-1.2) LA Diam 3.6 (1.9-4.0) LVEF 60-65% LVIDd 3.5 (3.5-5.7) LVIDs 2.5 (2.0-3.5) %FS 29% LVPWd 0.9 (0.6-1.2) Ao Diam 2.8 (2.0-3.7) 2 DIMENSIONAL ASSESSMENT: RIGHT ATRIUM: NORMAL LEFT ATRIUM: NORMAL RIGHT VENTRICLE: NORMAL LEFT VENTRICLE: NORMAL TRICUSPID VALVE: NORMAL MITRAL VALVE: TRACE MITRAL REGURGITATION PULMONIC VALVE: NORMAL AORTIC VALVE: NORMAL PERICARDIAL EFFUSION: NONE AORTIC ROOT: NORMAL LEFT VENTRICULAR WALL MOTION: NORMAL DOPPLER/COLOR FLOW: NORMAL COMMENTS: 1. NORMAL LEFT VENTRICULAR SYSTOLIC FUNCTION, EJECTION FRACTION 60-65%, NORMAL WALL MOTION 2. NEGATIVE BUBBLE STUDY TECHNOLOGIST: SAMREEN COPPOLA
[2024-06-05 12:09] VITALS: TEMP 98.2
--- NOTE | 2024-06-05 12:35 | EKG ---
Test Date: 2024-06-04 Test Time: 12:28:30 Regional Sales Coordinator: CLARK MEASUREMENT RESULTS: Intervals: Rate: 65 ME: 154 QRSD: 84 QT: 404 QTc: 420 [place]: P: 14 ME: 154 QRS: 19 T: 41 INTERPRETIVE STATEMENTS: Normal sinus rhythm Cannot rule out Anterior infarct, age undetermined Abnormal ECG Compared to ECG 08/05/2020 13:25:39 Myocardial infarct finding now present Electronically Signed On 06-05-24 12:32:42 CDT by León Salomon
--- NOTE | 2024-06-05 13:40 | RAD REPORT ---
EXAMINATION: Head Brain Wo Cont CLINICAL INDICATION: Female, 49 years old.24HR Post TNK TECHNIQUE: Axial CT images from the skull base to the vertex without intravenous contrast. Coronal an d sagittal reformatted images were created from the data set. One or more of the following dose reduction techniques were used: Automated exposure control, adjustment of the mA and/or kV according to patient size, and/or iterative reconstruction. Unless otherwise specified, incidental findings do not require dedicated imaging follow-up. [id number]. COMPARISON: 06/04/2024 FINDINGS: INTRACRANIAL: No acute intracranial hemorrhage. No hydrocephalus. No mass effect or midline shift. No significant white matter disease. VASCULATURE: No visualized abnormalities in the arteries or dural venous sinuses. SCALP/SKULL: No calvarial fracture identified. No acute soft tissue abnormality. SINUSES: Mucous retention cysts in the right maxillary sinus. Left mastoid effusion. IMPRESSION: No acute intracranial abnormality.
[2024-06-05 15:20] VITALS: BP 138/74
[2024-06-05] MEDS ORDERED: ENOXAPARIN 40 MG/0.4 ML SQ SCH ×2 (17:00)
[2024-06-05] MEDS ORDERED: ASPIRIN EC 81 MG TAB PO SCH (17:00)
--- NOTE | 2024-06-05 23:39 | CON ---
Reason For Consultation: Consultation called because of stroke, status post TNKase. History Of Present Illness: Ms. Villalobos is a 49-year-old patient with hypothyroidism, [place]ie emy thyroiditis, depression, and she developed sudden-onset slurred speech, could not get her words out. She said her daughter was speaking to her on the phone and she did not make sense, even though the patient thought she was making sense. She had left face and arm weakness and incoordination, and could not hold onto objects such as even a paper and other small objects. Symptoms began around 9 a .m. and she came to [facility] around 11:41 a.m. on June 04. She was within the window fo r TNKase and after all contraindications including negative head CT scan were ruled out, she received TNKase. She said following that she has had significant improvement in ability to communicate. The left side is back to normal, as her face and arm and the leg that are not significantly impacted. S he did have a brain MRI done yesterday. This study showed no acute intracranial abnormalities. Vent ricles were normal in size and morphology. No brain parenchymal signal abnormalities. CT angiogram of her head showed no evidence of large vessel occlusion or hemodynamically significant stenosis. CT angiogram of her neck showed no significant flow abnormalities in the neck vessels. Laboratory Studies: Showed essentially normal complete blood count with differential. INR 1.02. He r comprehensive metabolic panel was essentially unremarkable. Normal sodium and potassium. Slightly elevated chloride. Normal creatinine. Normal liver function studies. Her total cholesterol was el evated to 201, LDL cholesterol elevated at 134, HDL 44, her cholesterol/HDL ratio is 4.57. Urinalysi s: pH 7.5, otherwise unremarkable. An echocardiogram showed ejection fraction of 60% to 65%. Negat madeline bubble study and normal study. Her electrocardiogram showed normal sinus rhythm. Past Medical History: As noted above. Allergies: PENICILLIN. Medications: [place] Thyroid, ezetimibe 10 mg daily. Past Surgical History: Tonsillectomy, appendectomy. Family History: Noncontributory. Social History: No alcohol, tobacco, or IV drug use. Review of Systems: No recent fevers, chills, nausea, vomiting, myalgias, arthralgias, rash, headache, weight change. Physical Examination: Vital Signs: Blood pressure 138/74, pulse 66, respiratory rate 16 to 20, temperature 98.2, oxygen sa turation 100%. Weight 155 pounds. Height 5 feet 5 inches. General: Ms. Villalobos is resting comfortably in the ICU bed, recovering well. She is in no acute dist ress. HEENT: She is normocephalic, atraumatic. Sclerae anicteric. Oropharynx pink and moist. Neck: Supple. Chest: Clear. Heart: Regular. Extremities: No clubbing, cyanosis, or edema in the extremities. Neurological: Cranial nerves completed intact. Normal labial, lingual, and guttural sounds. Her mo tor examination, no appreciated weakness in the left and right upper and lower extremities. Sensatio n intact in both upper and lower extremities. Coordination intact. Reflexes symmetric and intact. Gait, good stance and stride. Assessment And Plan: Ms. Villalobos is a 49-year-old patient in the rehabilitation unit with a possible stroke. She did receive TNKase and the deficit is completely reversed at this point. Blood pressure s are in fair control. Her cholesterol is slightly elevated and she could benefit from a statin. Sh e should continue with aspirin, Plavix, folic acid, and statin and have permissive hypertension over the next week. She was told of diet modification and exercise. This also will be important for redu cing the risk of additional strokes or potential strokes. After discharge, she may be evaluated for outpatient physical therapy. She is actually doing excellent and should follow up in Dr. Black's clinic within a month. EAGLE/MYRNA Voice ID: [id number] Report ID: [id number]
--- NOTE | 2024-06-13 12:57 | P.HP ---
Certification for Inpatient Patient admitted to: Observation With expected LOS: <2 Midnights Patient will require the following post-hospital care: None Practitioner: I am a practitioner with admitting privileges, knowledge of patient current condition, hospital course, and medical plan of care. Services: Services provided to patient in accordance with Admission requirements found in Title 42 Section 412.3 of the Code of Federal Regulations Patient History Date of Service: 06/04/24 Reason for admission: Left-sided weakness History of Present Illness: Patient is a 49-year-old who came in with slurred speech. Patient had weakness of the lower left side of the body with some mild aphasia. Patient was brought into the emergency room for further evaluation. In the ER patient had a CT scan that was negative. Patient was given TNK. Patient was admitted for observation. Allergies Penicillins Allergy (Verified 06/05/14 15:22) Rash Home Medications: Aspirin Chewable [Aspirin Chewable*] 162 mg PO DAILY #60 tab.chew 06/05/24 Atorvastatin Calcium [Lipitor] 40 mg PO BEDTIME #30 tab 06/05/24 Ezetimibe [Zetia*] 10 mg PO DAILY 06/05/24 Mirabegron [Mirabegron ER] 25 mg PO DAILY 06/05/24 Ondansetron [Ondansetron Odt] 4 mg PO Q6HP PRN 06/05/24 Thyroid,Pork [[place] Thyroid] 15 mg PO DAILY 06/05/24 - Past Medical/Surgical History Diabetic: No -: hyperlipidemia -: hypothyroidism Past Surgical History: Patient denies surgical history - Family History Father Family History: Reviewed- Non-Contributory - Social History Smoking Status: Never smoker Alcohol use: No CD- Drugs: No Caffeine use: Yes Place of Residence: Home Review of Systems 10-point ROS is otherwise unremarkable Physical Examination - Vital Signs Temperature: 98.2 F Blood Pressure: 138/74 Pulse: 66 Respirations: 17 Pulse Ox (%): 100 - Physical Exam General: Alert, In no apparent distress, Oriented x3 HEENT: Atraumatic, PERRLA, Mucous membr. moist/pink, EOMI, Sclerae nonicteric Neck: Supple, 2+ carotid pulse no bruit, No LAD, Without JVD or thyroid abnormality Respiratory: Clear to auscultation bilaterally, Normal air movement Cardiovascular: Regular rate/rhythm, Normal S1 S2, No murmurs Gastrointestinal: Normal bowel sounds, Soft and benign, Non-distended, No tenderness Musculoskeletal: No clubbing, No swelling, No tenderness Integumentary: No rashes Neurological: Normal gait, Normal speech, Normal strength at 5/5 x4 extr, Normal tone, Sensation intact, Cranial nerves 3-12 intact, Normal affect Lymphatics: No axilla or inguinal lymphadenopathy Assessment & Plan - Problems (Diagnosis) (1) CVA (cerebral vascular accident) Status: Acute - Plan 1. MRI of the brain 2. Echocardiogram and carotid Doppler 3. Anti-platelet therapy and statin therapy 4. Neurology consultation 5. Physical therapy/occupational therapy/speech therapy evaluation 6. Modified barium swallow study 7. DVT prophylaxis Discharge Plan: Home Plan to discharge in: 24 Hours - Advance Directives Does patient have a Living Will: Yes Does patient have a Durable POA for Healthcare: Yes - Code Status/Comfort Care Code Status Assessed: Yes Code Status: Full Code Critical Care: Yes Time Spent Managing PTS Care (In Minutes): 45
--- NOTE | 2024-06-13 12:58 | P.DS ---
Discharge Date: 06/05/24 Disposition: ROUTINE DISCHARGE Discharge Condition: GOOD Reason for Admission: Left-sided weakness - Problems (1) CVA (cerebral vascular accident) Status: Acute Brief History of Present Illness: Patient is a 49-year-old who came in with slurred speech. Patient had weakness of the lower left side of the body with some mild aphasia. Patient was brought into the emergency room for further evaluation. In the ER patient had a CT scan that was negative. Patient was given TNK. Patient was admitted for observation. Hospital Course: Patient has done well during hospital stay and symptoms have returned to baseline. Patient is stable for discharge home. Vital Signs/Physical Exam: Temp Pulse Resp BP Pulse Ox 98.2 F 66 17 138/74 100 06/13/24 12:57 06/13/24 12:57 06/13/24 12:57 06/13/24 12:57 06/13/24 12:57 General: Alert, In no apparent distress, Oriented x3 Laboratory Data at Discharge: WBC 7.50 thou/uL (4.3-10.9) 06/05/24 05:25 Hgb 14.1 g/dL (12.0-15.0) D 06/05/24 05:25 Hct 40.9 % (36.0-45.0) 06/05/24 05:25 Plt Count 337 thou/uL (152-406) 06/05/24 05:25 PT 11.6 SECONDS (10-13.0) 06/04/24 12:14 INR 1.02 06/04/24 12:14 Sodium 140 mEq/L (136-145) 06/05/24 05:25 Potassium 4.5 mEq/L (3.5-5.1) 06/05/24 05:25 BUN 10 mg/dL (7-18) 06/05/24 05:25 Creatinine 0.71 mg/dL (0.55-1.02) 06/05/24 05:25 Glucose 90 mg/dL (74-106) 06/05/24 05:25 Phosphorus 2.4 mg/dL (2.5-4.9) L 06/05/24 05:25 Magnesium 2.0 mg/dL (1.6-2.4) 06/05/24 05:25 Total Bilirubin 0.4 mg/dL (0.2-1.0) 06/05/24 05:25 AST 16 U/L (15-37) 06/05/24 05:25 ALT 16 U/L (13-56) 06/05/24 05:25 Alkaline Phosphatase 61 U/L (45-117) D 06/05/24 05:25 Triglycerides 103 mg/dL (<150) 06/05/24 05:25 Cholesterol 190 mg/dL (<200) 06/05/24 05:25 HDL Cholesterol 42 mg/dL (40-60) 06/05/24 05:25 Cholesterol/HDL Ratio 4.52 06/05/24 05:25 Home Medications: Aspirin Chewable [Aspirin Chewable*] 162 mg PO DAILY #60 tab.chew 06/05/24 Atorvastatin Calcium [Lipitor] 40 mg PO BEDTIME #30 tab 06/05/24 Ezetimibe [Zetia*] 10 mg PO DAILY 06/05/24 Mirabegron [Mirabegron ER] 25 mg PO DAILY 06/05/24 Ondansetron [Ondansetron Odt] 4 mg PO Q6HP PRN 06/05/24 Thyroid,Pork [[place] Thyroid] 15 mg PO DAILY 06/05/24 New Medications: Aspirin Chewable [Aspirin Chewable*] 162 mg PO DAILY #60 tab.chew Atorvastatin Calcium [Lipitor] 40 mg PO BEDTIME #30 tab Physician Discharge Instructions: -DC IV and DC home -Follow-up with PCP in 1 to 2 weeks -Follow-up with Neurology in 1 to 2 weeks -Repeat labs including CBC and thyroid studies and 2 to 4 weeks; if hemoglobin elevated patient needs to follow-up with hematology -Please call Dr. Cisse at [phone] if any questions regarding hospital stay -Please call nursing station at [phone] if any nursing or medication questions -Return to the emergency room if symptoms worsen Diet: AHA Activity: Fall precautions Followup: Tom Black MD [ASSOCIATE-ACTIVE - CAN ADMIT] - 1-2 Weeks Eric Nowak MD [Primary Care Provider] - 1-2 Weeks Time spent managing pt's care (in minutes): 34
== END 2024-06-05 14:38 | disposition home or self-care (01) ==
LOC: ER 11:41 → ERHOLD 17:12 → 3RD-ICU 19:18
PROVIDERS: ADMIT Hospitalist; ATTEND Hospitalist
DX: I63.9 Cerebral infarction, unspecified (principal); R47.81 Slurred speech; R53.1 Weakness; E03.9 Hypothyroidism, unspecified; E06.3 Autoimmune thyroiditis; R29.702 NIHSS score 2; R47.01 Aphasia; F32.A Depression, unspecified; Z88.0 Allergy status to penicillin; Z79.82 Long term (current) use of aspirin
CPT/HCPCS: 36415; 70450; 70496; 70498; 70551; 71045; 80048; 80053; 80061; 80076; 81003; 82565; 83735; 83880; 84100; 84484; 85025; 85610; 86141; 92977; 93005; 93306; 96361; 96374; 97112; 97116; 97161; 99291; 99292; G0378; J3101; J7030; Q9967